=== PATIENT | female | born 1960 | race American Indian/Alaskan Native ===

== ENCOUNTER 2016-09-01 21:26 | Inpatient (IN) | payer MEDICAID ==
[2016-09-01 21:26] VITALS: BMI 48.9
[2016-09-01] MEDS ORDERED: Aspirin 325 mg EC Tablets PO STA (23:12)
[2016-09-01] MEDS ORDERED: Nitroglycerin 2% Ointment Foilpak UD TOP STA (23:12)
[2016-09-01] MEDS ORDERED: Nitroglycerin 2% Ointment Foilpak UD TOP ONE (23:29)
[2016-09-01 23:30] LABS: BASO % 0.7 % (0.0-2.0); HEMATOCRIT 43.1 % (34.0-47.0); LYMPH # 0.9 K/uL (1.0-4.3); MEAN CELL VOLUME 81.1 fL (81.0-99.0); MEAN CORPUSCULAR HEMOGLOBIN 25.3 pg (27.0-31.0); MEAN CORPUSCULAR HGB CONC 31.2 g/dL (33.0-37.0); MEAN PLATELET VOLUME 8.7 fL (7.2-11.7); MONO # 0.3 K/uL (0.0-0.8); MONO % 8.1 % (0.0-10.0); WHITE BLOOD COUNT 3.8 K/uL (4.8-10.8)
[2016-09-01 23:37] LABS: CHLORIDE 102 mmol/L (98-107)
[2016-09-01 23:38] LABS: POTASSIUM 4.2 mmol/L (3.6-5.2); SODIUM 138 mmol/L (132-148)
[2016-09-01 23:41] LABS: ALB/GLOB RATIO 0.9 (1.0-2.1); ALKALINE PHOSPHATASE 134 U/L (38-126); ALT/SGPT 20 U/L (9-52); AST/SGOT 20 U/L (14-36); BILIRUBIN,TOTAL 0.4 mg/dL (0.2-1.3); BLOOD UREA NITROGEN 13 mg/dL (7-17); CALCIUM 8.3 mg/dl (8.6-10.4); CARBON DIOXIDE 29 mmol/L (22-30); GFR AFRICAN-AMERICAN > 60; TOTAL PROTEIN 6.4 g/dL (6.3-8.3)
[2016-09-01 23:45] LABS: GLUCOSE,RANDOM 417 mg/dL (65-105)
[2016-09-02] MEDS ORDERED: (Novolin R) Insulin Human Regular 100 units/ml vial IV STA (00:22)
--- NOTE | 2016-09-02 00:28 | C.PDOC ---
Time Seen by Provider: 09/01/16 23:01 Chief Complaint (Nursing): Shortness Of Breath History Per: Patient, Family Onset/Duration Of Symptoms: Days, Gradual Current Symptoms Are (Timing): Worse Current Respiratory Medications: See Home Med List Severity: Moderate Associated Symptoms: Chest Pain, Ankle/Leg Swelling Reports Recently: Seen In ED, Treated By A Physician Additional History Per: Prior Records Past Medical History Reviewed: Historical Data, Nursing Documentation Vital Signs: Last Vital Signs Temp 97.7 F 09/01/16 22:40 Pulse 94 H 09/01/16 23:30 Resp 17 09/01/16 23:30 BP 177/101 H 09/01/16 23:30 Pulse Ox 99 09/01/16 23:30 - Medical History PMH: Arthritis, Asthma, Diabetes, HTN ("border line"), Hypercholesterolemia Surgical History: - [facility] Procedures CULDOTOMY (04/21/14) INSERTION OF INFUSION DEV INTO SUP VENA CAVA, PERC APPROACH (09/29/15) Family History: States: Unknown Family Hx - Social History Hx Tobacco Use: No Hx Alcohol Use: No Hx Substance Use: No - Immunization History Hx Tetanus Toxoid Vaccination: No Hx Influenza Vaccination: Yes Hx Pneumococcal Vaccination: No Review Of Systems Except As Marked, All Systems Reviewed And Found Negative. Constitutional: Negative for: Fever Cardiovascular: Positive for: Chest Pain, Edema Respiratory: Positive for: Shortness of Breath, SOB with Excertion. Negative for: Hemoptysis Gastrointestinal: Negative for: Vomiting, Abdominal Pain Musculoskeletal: Negative for: Neck Pain, Back Pain, Leg Pain Skin: Negative for: Rash Neurological: Negative for: Weakness, Numbness, Seizures, Altered Mental Status Physical Exam - Physical Exam Appears: Non-toxic, No Acute Distress Skin: Normal Color, Warm, Dry Head: Atraumatic, Normacephalic Eye(s): bilateral: PERRL, EOMI Neck: Normal ROM, Supple Cardiovascular: Rhythm Regular Respiratory: No Accessory Muscle Use, Rales (at bases) Gastrointestinal/Abdominal: Soft, No Tenderness Back: No CVA Tenderness Extremity: Normal ROM, Pedal Edema, No Calf Tenderness Neurological/Psych: Oriented x3, Normal Motor, Normal Sensation ED Course And Treatment - Laboratory Results Result Diagrams: 09/01/16 23:27 09/01/16 23:27 Lab Interpretation: Abnormal Interpretation Of Abnormal: Elevated BNP. Hyperglycemia. ECG: Interpreted By Me, Viewed By Me ECG Rhythm: Sinus Rhythm, PVC, Nonspecific Changes ECG Interpretation: Abnormal Rate From EC O2 Sat by Pulse Oximetry: 99 Pulse Ox Interpretation: Normal - Radiology CXR: Interpreted by Me, Viewed By Me CXR Interpretation: Yes: Other (CHF. Left pleural effusion.) Progress Note: Pt feels better after Nitropaste. Progress - Interventions Interventions:: Observation, Oxygen - Medications Administered Oral: Aspirin - Data Reviewed Data Reviewed: Lab, Diagnostic imaging, EKG, Old records - Patient Status Patient status: Partially improved - Continuity of Care Discussed patient case with:: Patient, Family-HIPPA compliant, ED Nurse, On- call PMD-pt unassigned - Patient Plan Patient Plan: Admission, Telemetry Disposition Discussed With : Carie Acosta Comment: She accepted pt on her service. Doctor Will See Patient In The: Hospital Counseled Patient/Family Regarding: Studies Performed, Diagnosis - Disposition Disposition: HOSPITALIZED Disposition Time: 00:30 Condition: FAIR - POA Present On Arrival: Poor Glycemic Control - Clinical Impression Clinical Impression: New onset of congestive heart failure
[2016-09-02] MEDS ORDERED: (Novolin R) Insulin Human Regular 100 units/ml vial ONE (00:37)
[2016-09-02 08:37] LABS: TROPONIN I 0.014 ng/mL (0.00-0.120)
[2016-09-02] MEDS: Albuterol HFA 90 mcg/actuation (8 g) IH SCH ×3 (09:33→19:20)
--- NOTE | 2016-09-02 09:42 | RAD ---
HISTORY: SOB, CP COMPARISON: 09/28/2015 TECHNIQUE: Chest PA and lateral FINDINGS: LUNGS: Mild venous congestion. Focal consolidation at the left lung base with associated small left pleural effusion. PLEURA: As above. CARDIOVASCULAR: Mild cardiomegaly. Calcification at the aortic knob. OSSEOUS STRUCTURES: No significant abnormalities. VISUALIZED UPPER ABDOMEN: Normal. OTHER FINDINGS: None. IMPRESSION: Mild venous congestion. Focal consolidation at the left lung base with associated small left pleural effusion.
[2016-09-02 09:49] LABS: RBC URINE 19 /hpf (0-3); URINE BILIRUBIN NEGATIVE (NEGATIVE); URINE BLOOD 1+ (NEGATIVE); URINE COLOR Yellow (YELLOW); URINE GLUCOSE (UA) 3+ mg/dL (Normal); URINE KETONE NEGATIVE (NEGATIVE); URINE LEUKOCYTE ESTERASE NEG Leu/uL (Negative); URINE PROTEIN 3+ mg/dL (NEGATIVE); URINE UROBILINOGEN NORMAL mg/dL (0.2-1.0); WBC URINE 4 /hpf (0-5)
[2016-09-02 09:55] LABS: IRON 77 ug/dL (37-170)
[2016-09-02] MEDS ORDERED: (Novolin 70/30) NPH/Regular 70/30 Units/ml 10 ml vial SC SCH (10:00)
[2016-09-02 11:03] LABS: FOLATE 11.4 ng/mL
[2016-09-02] MEDS: Potassium Chloride 20 mEq ER Tab PO SCH (11:04)
[2016-09-02] MEDS: (Novolin 70/30) NPH/Regular 70/30 Units/ml 10 ml vial SC SCH (17:28)
[2016-09-02] MEDS: (Novolin R) Insulin Human Regular 100 units/ml vial SC SCH ×2 (17:29→22:19)
[2016-09-03] MEDS: Albuterol HFA 90 mcg/actuation (8 g) IH SCH ×2 (02:00→10:09)
[2016-09-03 06:24] LABS: HEMATOCRIT 43.9 % (34.0-47.0); MEAN CELL VOLUME 81.2 fL (81.0-99.0); MEAN CORPUSCULAR HEMOGLOBIN 25.5 pg (27.0-31.0); MEAN CORPUSCULAR HGB CONC 31.4 g/dL (33.0-37.0); RED CELL DISTRIBUTION WIDTH 13.9 % (11.5-14.5); WHITE BLOOD COUNT 4.6 K/uL (4.8-10.8)
[2016-09-03 06:45] LABS: CHLORIDE 102 mmol/L (98-107); POTASSIUM 3.7 mmol/L (3.6-5.2); SODIUM 140 mmol/L (132-148)
[2016-09-03 06:48] LABS: BLOOD UREA NITROGEN 16 mg/dL (7-17); CARBON DIOXIDE 30 mmol/L (22-30); GFR AFRICAN-AMERICAN > 60; GLUCOSE,RANDOM 215 mg/dL (65-105)
[2016-09-03 06:49] LABS: CALCIUM 8.4 mg/dl (8.6-10.4)
[2016-09-03 07:09] LABS: THYROID STIMULATING HORMONE 3.91 mIU/L (0.46-4.68)
[2016-09-03] MEDS: (Novolin R) Insulin Human Regular 100 units/ml vial SC SCH ×3 (08:19→17:44)
--- NOTE | 2016-09-03 09:46 | HP ---
CHIEF COMPLAINT: Shortness of breath. HISTORY OF PRESENT ILLNESS: The patient is a 56-year-old female with past medical history of arthrit is, asthma, diabetes, hypertension, hypercholesterolemia, came in [facility] with shortness of b reath. That shortness of breath was moderate, associated chest pain, ankle and leg swelling. Seen b y in the Emergency Room. No hematuria or hematochezia. No headache, no dizziness. No fever, no chills. Does not look like toxic. ALLERGIES: The patient is not allergic with any medications. HOME MEDICATIONS: Insulin, glipizide, albuterol. HABITS: No smoking, no drugs, no ethanol. FAMILY HISTORY: Father and mother noncontributory. REVIEW OF SYSTEMS: The patient is seen and examined by me on 09/02/2016. No fever, no chills. No c hest pain. Positive shortness of breath, especially with exertion. Negative for hemoptysis. Negati ve for vomiting, abdominal pain. No back pain. No rash. No weakness. PHYSICAL EXAMINATION: VITAL SIGNS: Blood pressure 177/101, respiration 17, pulse 94, temperature 97.7. HEENT: Head is normocephalic, atraumatic. Eyes: PERRLA. Extraocular muscles intact. Conjunctivae are clear. Nose patent. Mucous membranes moist. NECK: Supple. No carotid bruit, JVD or thyromegaly. CHEST: Bilaterally symmetrical. HEART: S1, S2 positive. LUNGS: Clear to auscultation. ABDOMEN: Soft. Bowel sounds positive. No organomegaly. EXTREMITIES: Trace edema, no cyanosis. NEUROLOGIC: The patient is awake, alert, oriented x 3. No focal deficit. LABORATORY DATA: White blood 3.8, hemoglobin 13.5, hematocrit 43.1, platelets 213. Sodium 138, pota ssium 4.2, BUN 13, creatinine 0.7, glucose 417. ASSESSMENT AND PLAN: The patient is a 56-year-old lady with uncontrolled diabetes mellitus, leukopen ia, came with shortness of breath, has history of arthritis, asthma, diabetes mellitus, hypertension, hypercholesterolemia, history of sections, poor glycemic control. Looks like she has a new onset congestive heart failure. The patient admitted, started hydralazine, aspirin, losartan, Gluco trol, potassium, IV Lasix started, famotidine given for GI prophylaxis. Cardiology consult called [facility] Dr. Chavez on 09/02/2016 early in the morning, 9:00. We will continue present treatment. Gastroin testinal and deep venous thrombosis prophylaxis. Repeat labs. Will follow up. Carie Acosta MD cc: [id number] TT: 09/03/2016 09:46:00 mn
[2016-09-03] MEDS ORDERED: Albuterol HFA 90 mcg/actuation (8 g) IH PRN (10:20)
[2016-09-03] MEDS: Potassium Chloride 20 mEq ER Tab PO SCH (10:27)
[2016-09-03] MEDS: (Novolin 70/30) NPH/Regular 70/30 Units/ml 10 ml vial SC SCH ×2 (10:28→17:45)
--- NOTE | 2016-09-03 13:16 | CP.PCM.CON ---
History of Present Illness - History of Present Illness History of Present Illness: Shortness of breath with swelling of the legs for the last few weeks. Past Patient History - Past Medical History & Family History Past Medical History?: Yes - Past Social History Smoking Status: Never Smoked - CARDIAC Hx Hypercholesterolemia: Yes Hx Hypertension: Yes ("border line") - PULMONARY Hx Asthma: Yes - NEUROLOGICAL Hx Neurological Disorder: No - HEENT Hx HEENT Problems: No - RENAL Hx Chronic Kidney Disease: No - ENDOCRINE/METABOLIC Hx Diabetes Mellitus Type 2: Yes - HEMATOLOGICAL/ONCOLOGICAL Hx Blood Transfusions: No - INTEGUMENTARY Other/Comment: abscess right axilla 2010 - MUSCULOSKELETAL/RHEUMATOLOGICAL Hx Falls: No - GASTROINTESTINAL Hx Gastrointestinal Disorders: No - GENITOURINARY/GYNECOLOGICAL Hx Genitourinary Disorders: No - PSYCHIATRIC Hx Substance Use: No - SURGICAL HISTORY Hx Surgeries: Yes Hx Section: Yes (1981, 1983, 1984) Other/Comment: abcess via axillary area(right)2010 - ANESTHESIA Hx Anesthesia: Yes Hx Malignant Hyperthermia: No Meds Allergies/Adverse Reactions: Allergies Allergy/AdvReac Type Severity Reaction Status Date / Time No Known Allergies Allergy Verified 05/10/15 16:43 - Medications Medications: Current Medications Albuterol (Ventolin Hfa 90 Mcg/Actuation (8 G)) 2 puff IH Q6H PRN PRN Reason: Shortness of Breath Albuterol/Ipratropium (Duoneb 3 Mg/0.5 Mg (3 Ml) Ud) 3 ml INH RQ6 [facility] Aspirin (Aspirin) 325 mg PO DAILY [facility] Last Admin: 09/03/16 10:27 Dose: 325 mg Famotidine (Pepcid) 40 mg PO DAILY [facility] Last Admin: 09/03/16 10:27 Dose: 40 mg Furosemide (Lasix) 40 mg IVP Q12 [facility] Last Admin: 09/03/16 10:28 Dose: 40 mg Glipizide (Glucotrol) 10 mg PO BID [facility] Last Admin: 09/03/16 10:27 Dose: 10 mg Insulin Human Isoph/Insulin Regular (Novolin 70/30 (70/30 Units/Ml) 10 Ml) 10 units SC BID [facility] Last Admin: 09/03/16 10:28 Dose: 10 units Insulin Human Regular (Novolin R) 0 unit SC ACHS [facility] PRN Reason: Protocol Last Admin: 09/03/16 08:19 Dose: 2 unit Losartan Potassium (Cozaar) 100 mg PO DAILY [facility] Last Admin: 09/03/16 10:27 Dose: 100 mg Potassium Chloride (K-Dur 20 Meq Er Tab) 20 meq PO DAILY [facility] Last Admin: 09/03/16 10:27 Dose: 20 meq Rosuvastatin Calcium (Crestor) 20 mg PO [facility] Physical Exam - Head Exam Head Exam: NORMOCEPHALIC - Neck Exam Neck exam: Positive for: Normal Inspection - Cardiovascular Exam Cardiovascular Exam: REGULAR RHYTHM - Extremities Exam Extremities exam: Positive for: pedal edema - Neurological Exam Neurological exam: Oriented x3 Results - Vital Signs Recent Vital Signs: Last Vital Signs Temp 98.0 F 09/03/16 04:00 Pulse 96 H 09/03/16 10:40 Resp 20 09/03/16 10:40 BP 151/84 H 09/03/16 10:40 Pulse Ox 97 09/03/16 10:40 - Labs Result Diagrams: 09/04/16 06:15 09/04/16 06:16 Labs: Laboratory Results - last 24 hr 09/02/16 09/02/16 09/03/16 16:06 21:17 06:18 WBC 4.6 L RBC 5.40 H Hgb 13.8 Hct 43.9 MCV 81.2 MCH 25.5 L MCHC 31.4 L RDW 13.9 Plt Count 219 MPV 9.0 Sodium Potassium Chloride Carbon Dioxide Anion Gap BUN Creatinine Est GFR ( Amer) Est GFR (Non-Af Amer) POC Glucose (mg/dL) 378 H 202 H Random Glucose Calcium Total Creatine Kinase CK-MB (Mass) Troponin I, Quant TSH 3rd Generation 09/03/16 09/03/16 09/03/16 06:18 06:18 07:40 WBC RBC Hgb Hct MCV MCH MCHC RDW Plt Count MPV Sodium 140 Potassium 3.7 Chloride 102 Carbon Dioxide 30 Anion Gap 12 BUN 16 Creatinine 0.8 Est GFR ( Amer) > 60 Est GFR (Non-Af Amer) > 60 POC Glucose (mg/dL) 222 H Random Glucose 215 H Calcium 8.4 L Total Creatine Kinase 202 H CK-MB (Mass) 2.68 Troponin I, Quant < 0.0120 TSH 3rd Generation 3.91 09/03/16 12:29 WBC RBC Hgb Hct MCV MCH MCHC RDW Plt Count MPV Sodium Potassium Chloride Carbon Dioxide Anion Gap BUN Creatinine Est GFR ( Amer) Est GFR (Non-Af Amer) POC Glucose (mg/dL) 209 H Random Glucose Calcium Total Creatine Kinase CK-MB (Mass) Troponin I, Quant TSH 3rd Generation Assessment & Plan (1) New onset of congestive heart failure Assessment and Plan: History of multiple medical issues which can lead to CHF. However at this point it may be systolic , diastolic or combination of both. Recommend continue diuretic and maintain electrolyte balance with fluid restriction. Echocardiogram to assess LV function, depending upon LV finction will make further recommendation in the regimen. Status: Acute (2) Chest pain Assessment and Plan: May be ischmia or combination of CHF with ischemia. Continue monitoring and will consider further cardiac work-up when CHF is stable. Status: Acute Priority: High Onset Date: 01/06/14
[2016-09-03] MEDS: Albuterol-Ipratrop 3 mg / 0.5 (3 ml) UD INH SCH ×2 (13:29→19:35)
[2016-09-04] MEDS: (Novolin R) Insulin Human Regular 100 units/ml vial SC SCH ×6 (00:48→21:22)
[2016-09-04] MEDS: Albuterol-Ipratrop 3 mg / 0.5 (3 ml) UD INH SCH ×4 (01:50→20:16)
[2016-09-04 06:41] LABS: CHLORIDE 103 mmol/L (98-107); POTASSIUM 3.5 mmol/L (3.6-5.2); SODIUM 140 mmol/L (132-148)
[2016-09-04 06:44] LABS: BLOOD UREA NITROGEN 19 mg/dL (7-17); CARBON DIOXIDE 29 mmol/L (22-30); GFR AFRICAN-AMERICAN > 60; GLUCOSE,RANDOM 257 mg/dL (65-105)
[2016-09-04 06:45] LABS: CALCIUM 8.2 mg/dl (8.6-10.4)
[2016-09-04 06:53] LABS: BASO % 0.7 % (0.0-2.0); EOS % 0.7 % (0.0-4.0); HEMATOCRIT 39.9 % (34.0-47.0); LYMPH # 0.8 K/uL (1.0-4.3); LYMPH % 19.7 % (20.0-40.0); MEAN CELL VOLUME 80.2 fL (81.0-99.0); MEAN CORPUSCULAR HEMOGLOBIN 25.8 pg (27.0-31.0); MEAN CORPUSCULAR HGB CONC 32.1 g/dL (33.0-37.0); MEAN PLATELET VOLUME 8.7 fL (7.2-11.7); MONO # 0.4 K/uL (0.0-0.8); MONO % 8.5 % (0.0-10.0); NRBC % 0.1 % (0.0-2.0); RED CELL DISTRIBUTION WIDTH 13.7 % (11.5-14.5); WHITE BLOOD COUNT 4.3 K/uL (4.8-10.8)
[2016-09-04 07:10] LABS: THYROID STIMULATING HORMONE 2.49 mIU/L (0.46-4.68)
--- NOTE | 2016-09-04 08:16 | CARD ---
APPROVED REPORT EXAM: Two-dimensional and M-mode echocardiogram with Doppler and color Doppler. Other Information Quality : GoodRhythm : INDICATION LV Function:Systolic Congestive Heart Failure M-Mode DIMENSIONS RVDd1.48 (2.1-3.2cm)Left Atrium (MM)4.37 (2.5-4.0cm) IVSd1.33 (0.7-1.1cm)Aortic Root2.81 (2.2-3.7cm) LVDd5.23 (4.0-5.6cm)Aortic Cusp Exc.1.64 (1.5-2.0cm) PWd1.17 (0.7-1.1cm)FS (%) 28 % LVDs3.79 (2.0-3.8cm)LVEF (%)53 (>50%) Mitral Valve MV E Zoofztxo80.2cm/sMV A Eabxyfji664.7cm/sE/A ratio0.8 TDI E/Lateral E'0.0E/Medial E'0.0 <Conclusion> Apical views poorly visulized Left ventricle: thickness: upper limit of normal; size: normal; overall ejection fraction: 65%: diastolic filling pressures: normal Mitral valve: annulus: discrete posterior calcification: leaflets: normal: excursion: normal; no significant trans-mitral gradient: mild incompetence: left atrium: normal Aortic valve: leaflets: normal: excursion: normal; no significant trans-aortic gradient: No significant incompetence: aortic root: normal Right sided Structures: grossly normal Intra-cardiac hemodynamics: indeterminate No pericardial effusion
[2016-09-04] MEDS: (Novolin 70/30) NPH/Regular 70/30 Units/ml 10 ml vial SC SCH ×2 (10:28→17:42)
[2016-09-04] MEDS: Potassium Chloride 20 mEq ER Tab PO SCH ×2 (10:29→17:42)
--- NOTE | 2016-09-04 10:48 | PN ---
DATE: 09/03/2016 SUBJECTIVE: The patient was seen and examined on 09/03/2016 in the unit on the bedside. Still having swelling of the legs. No nausea or vomiting. Shortness of breath is getting better but still has dyspnea. No fever, no chills. No headache, no dizziness. No hematuria or hematochezia. No constipation. No rash. No cellulitis of the legs. PHYSICAL EXAMINATION: VITAL SIGNS: Temperature is 98.6, pulse 104, blood pressure 154/77, respiratory rate 19. HEENT: Head is normocephalic, atraumatic. Eyes: PERRLA. Extraocular muscles are intact. Conjunctivae are clear. Nose patent. Mucous membranes moist. NECK: Supple. No carotid bruit, JVD or thyromegaly. CHEST: Bilaterally symmetrical. HEART: S1, S2 positive. LUNGS: Clear to auscultation. ABDOMEN: Soft. Bowel sounds positive. No organomegaly. EXTREMITIES: Positive edema, no cyanosis. NEUROLOGIC: The patient is awake, alert, follows simple commands. MEDICATIONS: Aspirin, Cozaar, Crestor, DuoNeb, Glucotrol, K-Dur, Lasix, Norvasc , insulin, Pepcid, albuterol. LABORATORY DATA: White blood cells 4.6, hemoglobin 13.8, hematocrit 43.9, and platelets 219. Glucose 222. Sodium 140, potassium 3.7, BUN noted , creatinine 0.8, glucose 215, calcium 8.4. ASSESSMENT AND PLAN: The patient is a 56-year-old lady with uncontrolled diabetes mellitus, hypocalcemia, leukopenia, proteinuria, glucosuria, hematuria , came with chest pain, seen by the tobacco stemmer machine (Dr. Renetta Chavez), new onset congestive heart failure, history of multiple medical issues which can lead to congestive heart failure. According to tobacco stemmer machine, may be systolic, diastolic or combination of both. Recommended to continue diuretic and maintain electrolyte balance with fluid prescriptions. Electrocardiogram to assess left ventricle function. Depending on left ventricular function, will make further recommendation. Chest pain can be congestive heart failure with ischemia. Continue monitoring. GI and DVT prophylaxis. Repeat labs. Will follow up. Carie Acosta MD cc: [id number] TT: 09/04/2016 10:47:57 Confirmation # [id number] Dictation # [id number] mn TAMERA
--- NOTE | 2016-09-04 11:39 | CP.PCM.CON ---
History of Present Illness - History of Present Illness History of Present Illness: 56 y/o female seen and evaluated with Left foot blisterous healed lesion. Patient was admitted for a CHF exacerbation and was evaluated in the ICU. Patient states that she was seen at a criminal intelligence analyst office as an outpatient last week and was told that on the back of her left heel she had an "abscess". Patient states that she wasnt sure what they did to diagnose the abscess but states that her left foot and ankle was wrapped up with a soft cast and the back of her heel was offloaded. patient states that since she hadnt been feeling any pain in the ankle or foot. Patient also states that she had been seeing another criminal intelligence analyst for the right foot of which she states she had fractured years ago and was placed into a cast. Patient denies any further pedal complaints. Denies any f/c/n/v/sob. Past Patient History - Past Medical History & Family History Past Medical History?: Yes - Past Social History Smoking Status: Never Smoked - CARDIAC Hx Hypercholesterolemia: Yes Hx Hypertension: Yes ("border line") - PULMONARY Hx Asthma: Yes - NEUROLOGICAL Hx Neurological Disorder: No - HEENT Hx HEENT Problems: No - RENAL Hx Chronic Kidney Disease: No - ENDOCRINE/METABOLIC Hx Diabetes Mellitus Type 2: Yes - HEMATOLOGICAL/ONCOLOGICAL Hx Blood Transfusions: No - INTEGUMENTARY Other/Comment: abscess right axilla 2010 - MUSCULOSKELETAL/RHEUMATOLOGICAL Hx Falls: No - GASTROINTESTINAL Hx Gastrointestinal Disorders: No - GENITOURINARY/GYNECOLOGICAL Hx Genitourinary Disorders: No - PSYCHIATRIC Hx Substance Use: No - SURGICAL HISTORY Hx Surgeries: Yes Hx Section: Yes (1981, 1983, 1984) Other/Comment: abcess via axillary area(right)2010 - ANESTHESIA Hx Anesthesia: Yes Hx Malignant Hyperthermia: No Meds Allergies/Adverse Reactions: Allergies Allergy/AdvReac Type Severity Reaction Status Date / Time No Known Allergies Allergy Verified 05/10/15 16:43 - Medications Medications: Current Medications Albuterol (Ventolin Hfa 90 Mcg/Actuation (8 G)) 2 puff IH Q6H PRN PRN Reason: Shortness of Breath Last Admin: 09/04/16 01:31 Dose: 2 puff Albuterol/Ipratropium (Duoneb 3 Mg/0.5 Mg (3 Ml) Ud) 3 ml INH RQ6 [facility] Last Admin: 09/04/16 07:48 Dose: 3 ml Amlodipine Besylate (Norvasc) 10 mg PO DAILY [facility] Last Admin: 09/04/16 10:29 Dose: 10 mg Aspirin (Aspirin) 325 mg PO DAILY [facility] Last Admin: 09/04/16 10:29 Dose: 325 mg Famotidine (Pepcid) 40 mg PO DAILY [facility] Last Admin: 09/04/16 10:29 Dose: 40 mg Furosemide (Lasix) 40 mg IVP Q12 [facility] Last Admin: 09/04/16 10:29 Dose: 40 mg Glipizide (Glucotrol) 10 mg PO BID [facility] Last Admin: 09/04/16 10:28 Dose: 10 mg Insulin Human Isoph/Insulin Regular (Novolin 70/30 (70/30 Units/Ml) 10 Ml) 10 units SC BID [facility] Last Admin: 09/04/16 10:28 Dose: 10 units Insulin Human Regular (Novolin R) 0 unit SC ACHS [facility] PRN Reason: Protocol Last Admin: 09/04/16 10:31 Dose: 3 unit Losartan Potassium (Cozaar) 100 mg PO DAILY [facility] Last Admin: 09/04/16 10:28 Dose: 100 mg Potassium Chloride (K-Dur 20 Meq Er Tab) 20 meq PO DAILY [facility] Last Admin: 09/04/16 10:29 Dose: 20 meq Rosuvastatin Calcium (Crestor) 20 mg PO HS [facility] Last Admin: 09/03/16 23:19 Dose: 20 mg Physical Exam - Constitutional Appears: Well, Non-toxic - Neurological Exam Neurological exam: Alert, Oriented x3 - Psychiatric Exam Psychiatric exam: Normal Affect, Normal Mood - Skin Skin Exam: Normal Color, Warm - Additional Findings Additional findings: Vasc: DP/PT 1/4, Temp gradient wnl, Cap fill time < 3 x 10 Derm: Mild diffuse edema noted surrounding the left nakle but non pitting, no erythema, no open lesions, no interdigital maceration, no clinical signs of infection noted, on the posterior aspect of left heel there is a heeled blisterous lesion noted, there is no fluctuance noted underlying the healed lesion, no opening of the blister to underlying tissue is noted Neuro: Grossly itnact Ortho: Limited Results - Vital Signs Recent Vital Signs: Last Vital Signs Temp 98.0 F 09/04/16 04:00 Pulse 99 H 09/04/16 06:44 Resp 19 09/04/16 06:44 BP 108/59 L 09/04/16 10:29 Pulse Ox 97 09/04/16 01:44 - Labs Result Diagrams: 09/04/16 06:15 09/04/16 06:16 Labs: Laboratory Results - last 24 hr 09/03/16 09/03/16 09/03/16 12:29 16:32 20:59 WBC RBC Hgb Hct MCV MCH MCHC RDW Plt Count MPV Neut % (Auto) Lymph % (Auto) Ponce % (Auto) Eos % (Auto) Baso % (Auto) Neut # Lymph # Ponce # Eos # Baso # Sodium Potassium Chloride Carbon Dioxide Anion Gap BUN Creatinine Est GFR ( Amer) Est GFR (Non-Af Amer) POC Glucose (mg/dL) 209 H 276 H 382 H Random Glucose Calcium Total Creatine Kinase CK-MB (Mass) Troponin I, Quant TSH 3rd Generation 09/04/16 09/04/16 09/04/16 06:15 06:16 08:07 WBC 4.3 L RBC 4.98 Hgb 12.8 Hct 39.9 MCV 80.2 L MCH 25.8 L MCHC 32.1 L RDW 13.7 Plt Count 197 MPV 8.7 Neut % (Auto) 70.4 Lymph % (Auto) 19.7 L Ponce % (Auto) 8.5 Eos % (Auto) 0.7 Baso % (Auto) 0.7 Neut # 3.0 Lymph # 0.8 L Ponce # 0.4 Eos # 0.0 Baso # 0.0 Sodium 140 Potassium 3.5 L Chloride 103 Carbon Dioxide 29 Anion Gap 12 BUN 19 H Creatinine 0.8 Est GFR ( Amer) > 60 Est GFR (Non-Af Amer) > 60 POC Glucose (mg/dL) 243 H Random Glucose 257 H Calcium 8.2 L Total Creatine Kinase 201 H CK-MB (Mass) 2.35 Troponin I, Quant 0.0280 TSH 3rd Generation 2.49 Assessment & Plan - Assessment and Plan (Free Text) Assessment: 56 y/o female seen and evaluated with left posterior ankle healed blisterous lesion. Plan: Patient evaluated and chart reivewed Seen with attending Dr. Rodriguez. Dressing removed; healed blister noted Area redressed with overlying xeroform and DSD to prevent reformation. X-rays ordered b/l to eval to completely r/o any underlying abscess and to eval riht foot old fracture site. wound is stable at this time; Will continue to follow.
--- NOTE | 2016-09-04 15:06 | CP.PCM.PN ---
Subjective - Date & Time of Evaluation Date of Evaluation: 09/04/16 Time of Evaluation: 15:05 - Subjective Subjective: Feeling slightly better but still short of breath. Still have swelling of the legs. Objective - Vital Signs/Intake and Output Vital Signs (last 24 hours): Temp Pulse Resp BP Pulse Ox 98.0 F 99 H 19 108/59 L 97 09/04/16 04:00 09/04/16 06:44 09/04/16 06:44 09/04/16 10:29 09/04/16 01:44 Intake and Output: 09/04/16 09/04/16 06:59 18:59 Intake Total 360 Output Total 900 Balance -540 - Medications Medications: Current Medications Albuterol (Ventolin Hfa 90 Mcg/Actuation (8 G)) 2 puff IH Q6H PRN PRN Reason: Shortness of Breath Last Admin: 09/04/16 01:31 Dose: 2 puff Albuterol/Ipratropium (Duoneb 3 Mg/0.5 Mg (3 Ml) Ud) 3 ml INH RQ6 [facility] Last Admin: 09/04/16 14:16 Dose: Not Given Amlodipine Besylate (Norvasc) 10 mg PO DAILY [facility] Last Admin: 09/04/16 10:29 Dose: 10 mg Aspirin (Aspirin) 325 mg PO DAILY [facility] Last Admin: 09/04/16 10:29 Dose: 325 mg Famotidine (Pepcid) 40 mg PO DAILY [facility] Last Admin: 09/04/16 10:29 Dose: 40 mg Furosemide (Lasix) 40 mg IVP Q12 [facility] Last Admin: 09/04/16 10:29 Dose: 40 mg Glipizide (Glucotrol) 10 mg PO BID [facility] Last Admin: 09/04/16 10:28 Dose: 10 mg Insulin Human Isoph/Insulin Regular (Novolin 70/30 (70/30 Units/Ml) 10 Ml) 10 units SC BID [facility] Last Admin: 09/04/16 10:28 Dose: 10 units Insulin Human Regular (Novolin R) 0 unit SC ACHS [facility] PRN Reason: Protocol Last Admin: 09/04/16 10:31 Dose: 3 unit Losartan Potassium (Cozaar) 100 mg PO DAILY [facility] Last Admin: 09/04/16 10:28 Dose: 100 mg Potassium Chloride (K-Dur 20 Meq Er Tab) 20 meq PO DAILY [facility] Last Admin: 09/04/16 10:29 Dose: 20 meq Rosuvastatin Calcium (Crestor) 20 mg PO HS [facility] Last Admin: 09/03/16 23:19 Dose: 20 mg - Labs Labs: 09/04/16 06:15 09/04/16 06:16 - Head Exam Head Exam: NORMOCEPHALIC - Neck Exam Neck Exam: Normal Inspection - Respiratory Exam Respiratory Exam: NORMAL BREATHING PATTERN - Cardiovascular Exam Cardiovascular Exam: REGULAR RHYTHM - Extremities Exam Extremities Exam: Pedal Edema - Neurological Exam Neurological Exam: Oriented x3 Assessment and Plan (1) New onset of congestive heart failure Assessment & Plan: CHF, slightly better but still still significant fluid overload. Continue diuresis, maintain electrolyte balance. D/C Norvasc, Add meotprolol 50 BID and increase lasix to 80 BID with potassium supplement. Status: Acute (2) Chest pain Assessment & Plan: No new episodes, Sinus tachycardia most likely secondary to CHF. will increase beta blockers as tolerated. Status: Acute
[2016-09-04] MEDS: Magnesium Oxide 400 mg Tab UD PO SCH (17:42)
[2016-09-04] MEDS ORDERED: Magnesium Sulfate 454 g Box PO SCH (18:00)
--- NOTE | 2016-09-04 18:32 | CARD ---
APPROVED REPORT EKG Measurement Heart [id number] <Conclusion> Sinus tachycardia with frequent premature ventricular complexes Septal infarct, age undetermined Abnormal ECG
[2016-09-05] MEDS: Albuterol-Ipratrop 3 mg / 0.5 (3 ml) UD INH SCH ×4 (01:28→19:38)
--- NOTE | 2016-09-05 07:57 | PN ---
DATE: 09/04/2016 SUBJECTIVE: The patient was seen and examined on the unit. Was having lunch. Feeling slightly better. Still has shortness of breath. Swelling of the leg is getting better, but still swollen. Left foot has a dressing. Seen by the pediatric physician assistant. Seen by the tree scout. PHYSICAL EXAMINATION: VITAL SIGNS: Temperature 98, pulse 99, respiratory 19, blood pressure 108/59, pulse oximetry 97. HEENT: Head normocephalic, atraumatic. Eyes PERRLA. Extraocular muscles intact. Conjunctivae clear. Nose patent. NECK: Supple. No carotid bruit, JVD or thyromegaly. CHEST: Bilaterally symmetrical. HEART: S1, S2 positive. LUNGS: Clear to auscultation. ABDOMEN: Soft. Bowel sounds present. No organomegaly. EXTREMITIES: Positive edema. No cyanosis. Left foot heel has a dressing. NEUROLOGIC: The patient awake, alert, moving all 4 extremities. No focal deficits. MEDICATIONS: DuoNeb, Norvasc, aspirin, Pepcid, Lasix, Glucotrol, insulin, Cozaar, K-Dur, Crestor. LABORATORY DATA: White blood cells 4.3, hemoglobin 12.8, hematocrit 39.9, platelets 197. Sodium 140, potassium 3.5, BUN 19, creatinine 0.8, glucose 257. ASSESSMENT AND PLAN: The patient is a 56-year-old lady with leukopenia, hypokalemia, hyperglycemia. Has new onset congestive heart failure as per cardiology. Slightly better, but still significant fluid overload. Continue diuretics , electrolyte balance. Discontinue Norvasc as per tree scout. Add metoprolol 50 b.i.d. Increase Lasix to 80 b.i.d. with potassium supplement. No new onset of the chest pain. History of sinus tachycardia, most likely secondary to congestive heart failure. beta brody as tolerated. Seen by the podiatry, Dr. Jose Manuel Fang. The patient was seen by the pediatric physician assistant's office last week as outpatient and was told that the back of her foot heel, she has abscess. The patient states that she wants that they did to diagnose the abscess, but states that her left foot and ankle was wrapped up with a soft cast and the back of her heel was offloaded. The patient states that since she has not been feeling any pain in the ankle or foot. The patient also stated that she had been seeing another pediatric physician assistant for the right foot of which she states she had fractured years ago and was placed into the cast. The patient denies any further complaints. Dressing was removed. Heel blisters noted. Area redressed with overlying Xeroform and to prevent infection. X-ray ordered bilaterally to evaluate it completely. Rule out any underlying abscess and to evaluate right foot for old fracture. Wound is stable at this point. We will continue to follow present treatment. We will follow up. Carie Acosta MD cc: [id number] TT: 09/05/2016 00:46:51 Confirmation # [id number] Dictation # [id number] MTDD
[2016-09-05] MEDS: (Novolin R) Insulin Human Regular 100 units/ml vial SC SCH ×4 (08:09→21:37)
[2016-09-05] MEDS: (Novolin 70/30) NPH/Regular 70/30 Units/ml 10 ml vial SC SCH ×2 (09:46→17:41)
[2016-09-05] MEDS: Potassium Chloride 20 mEq ER Tab PO SCH ×2 (09:48→17:41)
[2016-09-05] MEDS: Magnesium Oxide 400 mg Tab UD PO SCH ×2 (09:49→17:41)
[2016-09-05] MEDS: Enoxaparin 40 mg Syringe SC SCH (09:49)
[2016-09-05] MEDS: Bacitracin Ointment 30 GM TUBE TOP SCH (12:39)
--- NOTE | 2016-09-05 18:09 | CP.PCM.PN ---
Subjective - Date & Time of Evaluation Date of Evaluation: 09/05/16 Time of Evaluation: 18:05 - Subjective Subjective: Sitting on the side of the bed having dinner. shortness of breath have improved. But swelling of the legs is still there. Objective - Vital Signs/Intake and Output Vital Signs (last 24 hours): Temp Pulse Resp BP Pulse Ox 98.6 F 82 20 127/78 97 09/05/16 16:00 09/05/16 16:00 09/05/16 16:00 09/05/16 16:00 09/05/16 08:27 Intake and Output: 09/05/16 09/05/16 06:59 18:59 Intake Total 240 Output Total 1500 1200 Balance -1260 -1200 - Medications Medications: Current Medications Acetaminophen (Tylenol 325mg Tab) 650 mg PO Q8 PRN PRN Reason: Pain, moderate (4-7) Last Admin: 09/05/16 12:39 Dose: 650 mg Albuterol (Ventolin Hfa 90 Mcg/Actuation (8 G)) 2 puff IH Q6H PRN PRN Reason: Shortness of Breath Last Admin: 09/04/16 01:31 Dose: 2 puff Albuterol/Ipratropium (Duoneb 3 Mg/0.5 Mg (3 Ml) Ud) 3 ml INH RQ6 [facility] Last Admin: 09/05/16 14:20 Dose: Not Given Aspirin (Aspirin) 325 mg PO DAILY [facility] Last Admin: 09/05/16 09:49 Dose: 325 mg Bacitracin (Bacitracin) 0 gm TOP DAILY [facility] Last Admin: 09/05/16 12:39 Dose: 1 gm Enoxaparin Sodium (Lovenox) 40 mg SC DAILY [facility] Last Admin: 09/05/16 09:49 Dose: 40 mg Famotidine (Pepcid) 40 mg PO DAILY [facility] Last Admin: 09/05/16 09:48 Dose: 40 mg Furosemide (Lasix) 80 mg IVP Q12 [facility] Last Admin: 09/05/16 09:48 Dose: 80 mg Glipizide (Glucotrol) 10 mg PO BID [facility] Last Admin: 09/05/16 17:40 Dose: 10 mg Insulin Human Isoph/Insulin Regular (Novolin 70/30 (70/30 Units/Ml) 10 Ml) 10 units SC BID [facility] Last Admin: 09/05/16 17:41 Dose: 10 units Insulin Human Regular (Novolin R) 0 unit SC ACHS [facility] PRN Reason: Protocol Last Admin: 09/05/16 17:41 Dose: 1 unit Losartan Potassium (Cozaar) 100 mg PO DAILY [facility] Last Admin: 09/05/16 09:48 Dose: 100 mg Magnesium Oxide (Mag-Ox) 400 mg PO BID [facility] Last Admin: 09/05/16 17:41 Dose: 400 mg Metoprolol Tartrate (Lopressor) 50 mg PO BID [facility] Last Admin: 09/05/16 17:40 Dose: 50 mg Potassium Chloride (K-Dur 20 Meq Er Tab) 40 meq PO BID [facility] Last Admin: 09/05/16 17:41 Dose: 40 meq Rosuvastatin Calcium (Crestor) 20 mg PO HS [facility] Last Admin: 09/04/16 23:18 Dose: 20 mg - Labs Labs: 09/04/16 06:15 09/04/16 06:16 - Head Exam Head Exam: NORMOCEPHALIC - Neck Exam Neck Exam: Normal Inspection - Respiratory Exam Respiratory Exam: NORMAL BREATHING PATTERN - Cardiovascular Exam Cardiovascular Exam: REGULAR RHYTHM - Extremities Exam Extremities Exam: Pedal Edema - Neurological Exam Neurological Exam: Oriented x3 Assessment and Plan (1) New onset of congestive heart failure Assessment & Plan: Diastolic dysfunction which is improving, continue diuretsics and maintain electrolytes balance. Status: Acute (2) Chest pain Assessment & Plan: Resolved, further cardiac work-up when CHF is resolved. Status: Acute
[2016-09-06] MEDS: Albuterol-Ipratrop 3 mg / 0.5 (3 ml) UD INH SCH ×4 (01:28→19:42)
--- NOTE | 2016-09-06 07:48 | PN ---
DATE: 09/05/2016 SUBJECTIVE: The patient is seen and examined on the bedside in her room on the medical floor. Daughter, grandkids and family were sitting around; looks a little bit better. Shortness of breath is better, but swelling of the legs is still there. No chest pain. No fever or chills. No hematuria or hematochezia. No headache, no dizziness. All 12-point review of system is negative except. One. PHYSICAL EXAMINATION: VITAL SIGNS: Temperature 98.6, pulse 82, respiratory rate 20, blood pressure 127/78, and pulse oximetry 97. HEENT: Head normocephalic, atraumatic. Eyes: PERRLA. Extraocular muscles intact. Conjunctivae clear. Nose patent. Mucous membranes moist. NECK: Supple. No carotid bruit, JVD or thyromegaly. CHEST: Bilaterally symmetrical. HEART: S1, S2 positive. LUNGS: Clear to auscultation. ABDOMEN: Soft. Bowel sounds present. No organomegaly. EXTREMITIES: Positive edema, no cyanosis. NEUROLOGIC: The patient is awake, alert, moving all 4 extremities. No focal deficit. MEDICATIONS: Reviewed by me. LABORATORY DATA: White blood cells 4.3, hemoglobin 12.8, hematocrit 39.9, platelets 197. Sodium 140, potassium 3.5, BUN 19, creatinine 0.8, glucose 257. ASSESSMENT AND PLAN: The patient is an 56-year-old lady with hypokalemia, uncontrolled diabetes mellitus, leukopenia, has new onset congestive heart failure, diastolic dysfunction which is improving. Continue diuretics and maintain electrolyte balance as per Dr. Chavez. Chest pain resolved. Further cardiac workup when congestive heart is resolved as per Dr. Chavez. The patient has obesity, left foot heel ulcer. Podiatry is on the case. History of electrolyte imbalance, getting adjusted. Fluid overload is getting better. Dr. Chavez discontinued the Norvas added metoprolol. Gastrointestinal and deep venous thrombosis prophylaxis. Repeat labs. Out of bed, physical therapy. We will follow up. Carie Acosta MD cc: [id number] TT: 09/06/2016 07:47:38 Confirmation # [id number] Dictation # [id number] charo PHILIP
[2016-09-06] MEDS: (Novolin R) Insulin Human Regular 100 units/ml vial SC SCH ×4 (07:49→21:39)
[2016-09-06 08:06] LABS: HEMATOCRIT 41.7 % (34.0-47.0); MEAN CELL VOLUME 80.6 fL (81.0-99.0); MEAN CORPUSCULAR HEMOGLOBIN 25.3 pg (27.0-31.0); MEAN CORPUSCULAR HGB CONC 31.4 g/dL (33.0-37.0); MEAN PLATELET VOLUME 8.8 fL (7.2-11.7); RED CELL DISTRIBUTION WIDTH 14.2 % (11.5-14.5); WHITE BLOOD COUNT 6.4 K/uL (4.8-10.8)
[2016-09-06 08:29] LABS: CHLORIDE 100 mmol/L (98-107); POTASSIUM 4.2 mmol/L (3.6-5.2); SODIUM 141 mmol/L (132-148)
[2016-09-06 08:31] LABS: GFR AFRICAN-AMERICAN > 60
[2016-09-06 08:32] LABS: ALB/GLOB RATIO 0.9 (1.0-2.1); ALKALINE PHOSPHATASE 104 U/L (38-126); ALT/SGPT 9 U/L (9-52); AST/SGOT 21 U/L (14-36); BILIRUBIN,TOTAL 0.9 mg/dL (0.2-1.3); BLOOD UREA NITROGEN 24 mg/dL (7-17); CALCIUM 8.8 mg/dl (8.6-10.4); CARBON DIOXIDE 32 mmol/L (22-30); GLUCOSE,RANDOM 161 mg/dL (65-105); TOTAL PROTEIN 6.7 g/dL (6.3-8.3)
[2016-09-06] MEDS: Potassium Chloride 20 mEq ER Tab PO SCH ×2 (09:15→17:48)
[2016-09-06] MEDS: Magnesium Oxide 400 mg Tab UD PO SCH ×2 (09:16→17:48)
[2016-09-06] MEDS: Enoxaparin 40 mg Syringe SC SCH (09:16)
[2016-09-06] MEDS: Bacitracin Ointment 30 GM TUBE TOP SCH (09:17)
[2016-09-06] MEDS: (Novolin 70/30) NPH/Regular 70/30 Units/ml 10 ml vial SC SCH ×2 (09:20→17:46)
--- NOTE | 2016-09-06 12:20 | CP.PCM.PN ---
Subjective - Date & Time of Evaluation Date of Evaluation: 09/06/16 Time of Evaluation: 12:18 - Subjective Subjective: 56 y/o female seen at bedside with attending Dr. Rodriguez for Left foot blisterous healed lesion. Patient is resting comfortably in NAD and AAOx3. She denies any acute events overnight. Patient denies any pain to her feet. She denies any n/v/f/c/d/sob. Objective - Vital Signs/Intake and Output Vital Signs (last 24 hours): Temp Pulse Resp BP Pulse Ox 98.3 F 81 20 185/84 H 99 09/06/16 07:00 09/06/16 08:00 09/06/16 07:00 09/06/16 09:16 09/06/16 07:00 Intake and Output: 09/06/16 09/06/16 06:59 18:59 Intake Total 560 Output Total 2350 Balance -1790 - Medications Medications: Current Medications Acetaminophen (Tylenol 325mg Tab) 650 mg PO Q8 PRN PRN Reason: Pain, moderate (4-7) Last Admin: 09/06/16 07:08 Dose: 650 mg Albuterol (Ventolin Hfa 90 Mcg/Actuation (8 G)) 2 puff IH Q6H PRN PRN Reason: Shortness of Breath Last Admin: 09/04/16 01:31 Dose: 2 puff Albuterol/Ipratropium (Duoneb 3 Mg/0.5 Mg (3 Ml) Ud) 3 ml INH RQ6 [facility] Last Admin: 09/06/16 09:04 Dose: 3 ml Aspirin (Aspirin) 325 mg PO DAILY [facility] Last Admin: 09/06/16 09:16 Dose: 325 mg Bacitracin (Bacitracin) 0 gm TOP DAILY [facility] Last Admin: 09/06/16 09:17 Dose: 1 gm Enoxaparin Sodium (Lovenox) 40 mg SC DAILY [facility] Last Admin: 09/06/16 09:16 Dose: 40 mg Famotidine (Pepcid) 40 mg PO DAILY [facility] Last Admin: 09/06/16 09:16 Dose: 40 mg Furosemide (Lasix) 80 mg IVP Q12 [facility] Last Admin: 09/06/16 09:16 Dose: 80 mg Glipizide (Glucotrol) 10 mg PO BID [facility] Last Admin: 09/06/16 09:15 Dose: 10 mg Insulin Human Isoph/Insulin Regular (Novolin 70/30 (70/30 Units/Ml) 10 Ml) 10 units SC BID [facility] Last Admin: 09/06/16 09:20 Dose: 10 units Insulin Human Regular (Novolin R) 0 unit SC ACHS [facility] PRN Reason: Protocol Last Admin: 09/06/16 07:49 Dose: 1 unit Losartan Potassium (Cozaar) 100 mg PO DAILY [facility] Last Admin: 09/06/16 09:16 Dose: 100 mg Magnesium Oxide (Mag-Ox) 400 mg PO BID [facility] Last Admin: 09/06/16 09:16 Dose: 400 mg Metoprolol Tartrate (Lopressor) 50 mg PO BID [facility] Last Admin: 09/06/16 09:19 Dose: 50 mg Potassium Chloride (K-Dur 20 Meq Er Tab) 40 meq PO BID [facility] Last Admin: 09/06/16 09:15 Dose: 40 meq Rosuvastatin Calcium (Crestor) 20 mg PO HS [facility] Last Admin: 09/05/16 21:53 Dose: 20 mg Spironolactone (Aldactone) 25 mg PO BID [facility] Last Admin: 09/06/16 09:16 Dose: 25 mg - Labs Labs: 09/06/16 08:01 09/06/16 08:01 - Constitutional Appears: Well, Non-toxic, No Acute Distress - Extremities Exam Additional comments: Vasc: DP/PT 1/4, Temp gradient wnl, Cap fill time < 3 x 10 Derm: Mild diffuse edema noted surrounding the left nakle but non pitting, no erythema, no open lesions, no interdigital maceration, no clinical signs of infection noted, on the posterior aspect of left heel there is a heeled blisterous lesion noted, there is no fluctuance noted underlying the healed lesion, no opening of the blister to underlying tissue is noted Neuro: Grossly itnact Ortho: Limited - Neurological Exam Neurological Exam: Alert, Awake, Oriented x3 - Psychiatric Exam Psychiatric exam: Normal Affect, Normal Mood Assessment and Plan - Assessment and Plan (Free Text) Assessment: 56 y/o female seen and evaluated with left posterior ankle healed blisterous lesion. Plan: Patient evaluated and chart reivewed Seen with attending Dr. Rodriguez. Dressing removed; healed blister noted Area redressed with overlying xeroform and DSD to prevent reformation. X-rays ordered b/l to eval to completely r/o any underlying abscess and to eval right foot old fracture site. wound is stable at this time; Will continue to follow.
--- NOTE | 2016-09-06 17:31 | CP.PCM.PN ---
Subjective - Date & Time of Evaluation Date of Evaluation: 09/06/16 Time of Evaluation: 17:27 - Subjective Subjective: Shortness of breath have improved but edema is still there. Objective - Vital Signs/Intake and Output Vital Signs (last 24 hours): Temp Pulse Resp BP Pulse Ox 98.4 F 89 20 111/68 100 09/06/16 15:00 09/06/16 15:00 09/06/16 15:00 09/06/16 15:00 09/06/16 15:00 Intake and Output: 09/06/16 09/06/16 06:59 18:59 Intake Total 560 Output Total 2350 1200 Balance -1790 -1200 - Medications Medications: Current Medications Acetaminophen (Tylenol 325mg Tab) 650 mg PO Q8 PRN PRN Reason: Pain, moderate (4-7) Last Admin: 09/06/16 07:08 Dose: 650 mg Albuterol (Ventolin Hfa 90 Mcg/Actuation (8 G)) 2 puff IH Q6H PRN PRN Reason: Shortness of Breath Last Admin: 09/04/16 01:31 Dose: 2 puff Albuterol/Ipratropium (Duoneb 3 Mg/0.5 Mg (3 Ml) Ud) 3 ml INH RQ6 [facility] Last Admin: 09/06/16 13:28 Dose: 3 ml Aspirin (Aspirin) 325 mg PO DAILY [facility] Last Admin: 09/06/16 09:16 Dose: 325 mg Bacitracin (Bacitracin) 0 gm TOP DAILY [facility] Last Admin: 09/06/16 09:17 Dose: 1 gm Enoxaparin Sodium (Lovenox) 40 mg SC DAILY [facility] Last Admin: 09/06/16 09:16 Dose: 40 mg Famotidine (Pepcid) 40 mg PO DAILY [facility] Last Admin: 09/06/16 09:16 Dose: 40 mg Furosemide (Lasix) 80 mg IVP Q12 [facility] Last Admin: 09/06/16 09:16 Dose: 80 mg Glipizide (Glucotrol) 10 mg PO BID [facility] Last Admin: 09/06/16 09:15 Dose: 10 mg Insulin Human Isoph/Insulin Regular (Novolin 70/30 (70/30 Units/Ml) 10 Ml) 10 units SC BID [facility] Last Admin: 09/06/16 09:20 Dose: 10 units Insulin Human Regular (Novolin R) 0 unit SC ACHS [facility] PRN Reason: Protocol Last Admin: 09/06/16 12:30 Dose: 1 unit Losartan Potassium (Cozaar) 100 mg PO DAILY [facility] Last Admin: 09/06/16 09:16 Dose: 100 mg Magnesium Oxide (Mag-Ox) 400 mg PO BID [facility] Last Admin: 09/06/16 09:16 Dose: 400 mg Metoprolol Tartrate (Lopressor) 50 mg PO BID [facility] Last Admin: 09/06/16 09:19 Dose: 50 mg Potassium Chloride (K-Dur 20 Meq Er Tab) 40 meq PO BID [facility] Last Admin: 09/06/16 09:15 Dose: 40 meq Rosuvastatin Calcium (Crestor) 20 mg PO HS [facility] Last Admin: 09/05/16 21:53 Dose: 20 mg Spironolactone (Aldactone) 25 mg PO BID [facility] Last Admin: 09/06/16 09:16 Dose: 25 mg - Labs Labs: 09/06/16 08:01 09/06/16 08:01 - Neck Exam Neck Exam: Normal Inspection - Respiratory Exam Respiratory Exam: NORMAL BREATHING PATTERN - Cardiovascular Exam Cardiovascular Exam: REGULAR RHYTHM - Extremities Exam Extremities Exam: Pedal Edema - Neurological Exam Neurological Exam: Oriented x3 Assessment and Plan (1) New onset of congestive heart failure Assessment & Plan: Diuresis with fluid restriction. Status: Acute (2) Chest pain Assessment & Plan: Improved. no new episodes. Status: Acute
--- NOTE | 2016-09-06 19:56 | CP.PCM.CON ---
History of Present Illness - History of Present Illness History of Present Illness: uncontrolled diabetes Past Patient History - Past Medical History & Family History Past Medical History?: Yes - Past Social History Smoking Status: Never Smoked - CARDIAC Hx Hypercholesterolemia: Yes Hx Hypertension: Yes ("border line") - PULMONARY Hx Asthma: Yes - NEUROLOGICAL Hx Neurological Disorder: No - HEENT Hx HEENT Problems: No - RENAL Hx Chronic Kidney Disease: No - ENDOCRINE/METABOLIC Hx Diabetes Mellitus Type 2: Yes - HEMATOLOGICAL/ONCOLOGICAL Hx Blood Transfusions: No - INTEGUMENTARY Other/Comment: abscess right axilla 2010 - MUSCULOSKELETAL/RHEUMATOLOGICAL Hx Falls: No - GASTROINTESTINAL Hx Gastrointestinal Disorders: No - GENITOURINARY/GYNECOLOGICAL Hx Genitourinary Disorders: No - PSYCHIATRIC Hx Substance Use: No - SURGICAL HISTORY Hx Surgeries: Yes Hx Section: Yes (1981, 1983, 1984) Other/Comment: abcess via axillary area(right)2010 - ANESTHESIA Hx Anesthesia: Yes Hx Malignant Hyperthermia: No Meds Allergies/Adverse Reactions: Allergies Allergy/AdvReac Type Severity Reaction Status Date / Time No Known Allergies Allergy Verified 05/10/15 16:43 - Medications Medications: Current Medications Acetaminophen (Tylenol 325mg Tab) 650 mg PO Q8 PRN PRN Reason: Pain, moderate (4-7) Last Admin: 09/06/16 07:08 Dose: 650 mg Albuterol (Ventolin Hfa 90 Mcg/Actuation (8 G)) 2 puff IH Q6H PRN PRN Reason: Shortness of Breath Last Admin: 09/04/16 01:31 Dose: 2 puff Albuterol/Ipratropium (Duoneb 3 Mg/0.5 Mg (3 Ml) Ud) 3 ml INH RQ6 [facility] Last Admin: 09/06/16 13:28 Dose: 3 ml Aspirin (Aspirin) 325 mg PO DAILY [facility] Last Admin: 09/06/16 09:16 Dose: 325 mg Bacitracin (Bacitracin) 0 gm TOP DAILY [facility] Last Admin: 09/06/16 09:17 Dose: 1 gm Enoxaparin Sodium (Lovenox) 40 mg SC DAILY [facility] Last Admin: 09/06/16 09:16 Dose: 40 mg Famotidine (Pepcid) 40 mg PO DAILY [facility] Last Admin: 09/06/16 09:16 Dose: 40 mg Furosemide (Lasix) 80 mg IVP Q12 [facility] Last Admin: 09/06/16 09:16 Dose: 80 mg Glipizide (Glucotrol) 10 mg PO BID [facility] Last Admin: 09/06/16 17:48 Dose: 10 mg Insulin Human Isoph/Insulin Regular (Novolin 70/30 (70/30 Units/Ml) 10 Ml) 10 units SC BID [facility] Last Admin: 09/06/16 17:46 Dose: 10 units Insulin Human Regular (Novolin R) 0 unit SC ACHS [facility] PRN Reason: Protocol Last Admin: 09/06/16 17:47 Dose: 1 unit Losartan Potassium (Cozaar) 100 mg PO DAILY [facility] Last Admin: 09/06/16 09:16 Dose: 100 mg Magnesium Oxide (Mag-Ox) 400 mg PO BID [facility] Last Admin: 09/06/16 17:48 Dose: 400 mg Metoprolol Tartrate (Lopressor) 50 mg PO BID [facility] Last Admin: 09/06/16 17:48 Dose: 50 mg Potassium Chloride (K-Dur 20 Meq Er Tab) 40 meq PO BID [facility] Last Admin: 09/06/16 17:48 Dose: 40 meq Rosuvastatin Calcium (Crestor) 20 mg PO [facility] Last Admin: 09/05/16 21:53 Dose: 20 mg Spironolactone (Aldactone) 25 mg PO BID [facility] Last Admin: 09/06/16 17:48 Dose: 25 mg Results - Vital Signs Recent Vital Signs: Last Vital Signs Temp 98.4 F 09/06/16 15:00 Pulse 102 H 09/06/16 17:51 Resp 20 09/06/16 15:00 BP 153/89 H 09/06/16 17:51 Pulse Ox 100 09/06/16 15:00 - Labs Result Diagrams: 09/06/16 08:01 09/06/16 08:01 Labs: Laboratory Results - last 24 hr 09/05/16 09/06/16 09/06/16 21:31 06:33 08:01 WBC RBC Hgb Hct MCV MCH MCHC RDW Plt Count MPV Sodium 141 Potassium 4.2 Chloride 100 Carbon Dioxide 32 H Anion Gap 13 BUN 24 H Creatinine 0.8 Est GFR ( Amer) > 60 Est GFR (Non-Af Amer) > 60 POC Glucose (mg/dL) 209 H 195 H Random Glucose 161 H Calcium 8.8 Total Bilirubin 0.9 AST 21 ALT 9 D Alkaline Phosphatase 104 Total Protein 6.7 Albumin 3.2 L Globulin 3.5 Albumin/Globulin Ratio 0.9 L 09/06/16 09/06/16 09/06/16 08:01 12:10 16:52 WBC 6.4 RBC 5.18 Hgb 13.1 Hct 41.7 MCV 80.6 L MCH 25.3 L MCHC 31.4 L RDW 14.2 Plt Count 226 MPV 8.8 Sodium Potassium Chloride Carbon Dioxide Anion Gap BUN Creatinine Est GFR ( Amer) Est GFR (Non-Af Amer) POC Glucose (mg/dL) 162 H 193 H Random Glucose Calcium Total Bilirubin AST ALT Alkaline Phosphatase Total Protein Albumin Globulin Albumin/Globulin Ratio Assessment & Plan (1) Diabetes mellitus, insulin dependent (IDDM), uncontrolled Assessment and Plan: Endocrine consult reason for consult: uncontrolled diabetes Ms. Isaac is 56 y/o admitted for sob / CHF consult request was found on consult request list yesterday , floor was contacted today , consult request was confirmed , pt seen today as per pt. has DM 1998 (-) neuropathy , (+) retinopathy , (-) nephropathy , with left leg blister outpatient diabetes management regimen : humalin 70/30 30 units bid inpatient diabetes management regimen : glipizide 10 mg po bid & humalin 70/30 10 units bid , humalin R low dose coverage blood glucose log : 190-200 occasioal 150/160 NO hypoglycemia Allergy NKDA Past medical history : HTN , hyperlipidemia Past surgical history : CS x 3 Psychiatry history : denies Social history : denies smoking , ETOH use or illicit drug use Family history : mother with dm ROS: Constitutional: denies fever ,tiredness/weakness .HEENT: denies earache, change in voice .Respiratory: denies cough, (+) sob . CVS :no chest pain, no palpitations . Abdomen : no abdominal pain, no nausea /vomiting , no change bowel movement . 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 Extremities : (+) edema , no tremors .Skin: no itching, no rash Physical exam Well developed AAO x3 , ,NAD , on oxygen via NC , hardly answering the questions , eyes closed while taking VSS HEENT: norm cephalic, atraumatic , no lid lag , no exophthalmos NECK: supple, no palpable lymphadenopathy THYROID: no palpable thyromegaly , not tender CHEST: fair air entry, bilateral, CVS: S1,S2 ABDOMEN: bowel sound present, benign, obese, no wide purple striae , no bruises EXTREMITIES: pitting edema, clubbing or cyanosis, no palpable hand tremors Skin : acanthosis nigricans lab: tsh 2.49 , a1c 11.9 , TG 147 , ldl 163 , NT-proNTP 1290 Assessment uncontrolled IDDM with retinopathy & leg blisters CHF morbid obesity plan d/c glipizide continue Novoloin R low dose coverage, no 3 am coverage increase novoloin 70/30 13 bid with meals , if eat > 60% start levemir 10 units @ 9pm daily starting tomorrow 09/07/2016 on Crestor will monitor Status: Acute (2) New onset of congestive heart failure Status: Acute (3) Morbid obesity Status: Acute
[2016-09-07] MEDS: Albuterol-Ipratrop 3 mg / 0.5 (3 ml) UD INH SCH ×4 (02:26→19:43)
[2016-09-07] MEDS: (Novolin R) Insulin Human Regular 100 units/ml vial SC SCH ×4 (08:18→21:56)
[2016-09-07] MEDS: (Novolin 70/30) NPH/Regular 70/30 Units/ml 10 ml vial SC SCH ×2 (08:18→17:56)
--- NOTE | 2016-09-07 08:19 | PN ---
DATE: 09/06/2016 The patient is a 56-year-old female. The patient was seen and examined on the bedside. Swelling of the legs is getting better. Shortness of breath is getting better, but still having shortness of breath when she is moving. Right upper extremity is swollen because of infiltration of the IV line. The nurse changed IV line and patient instructed to keep the arm elevated. PHYSICAL EXAMINATION: VITAL SIGNS: Temperature is 98.4, pulse 80 , respirations 20, blood pressure 111/68, pulse oximetry 100%. HEENT: Head normocephalic, atraumatic. Eyes: PERRLA. Extraocular muscles intact. Conjunctivae pink. Eyelids unremarkable. Nose patent. Mucous membranes moist. NECK: Supple. No carotid bruit, no JVD, no thyromegaly. CHEST: Bilaterally symmetrical. HEART: S1 and S2 positive. LUNGS: Clear to auscultation. ABDOMEN: Soft. Bowel sounds positive. No organomegaly. EXTREMITIES: No edema, no cyanosis. NEUROLOGIC: The patient is awake, alert, moving all 4 extremities. No focal deficits. MEDICATIONS: Reviewed by me. LABORATORIES: Reviewed by me. ASSESSMENT AND PLAN: The patient is a 56-year-old male with hyperglycemia, increased BUN, new onset of congestive heart failure. Continue diuresis, fluid restriction. Chest pain improved , episode infiltration of the right upper extremity. The patient went for duplex of the right upper extremity, seems to be negative, but official report pending. Seen by Yao Higginbotham. The patient has diabetes mellitus. financial controller is on the case . We will continue Aldactone and spironolactone, aspirin, losartan for high blood pressure and Crestor for hypercholesterolemia. Potassium is replaced, furosemide is given, Levemir for diabetes mellitus, metoprolol for blood pressure, Lovenox for deep venous thrombosis prophylaxis, Tylenol because patient has pain in the right upper extremity. Gastrointestinal and deep venous thrombosis prophylaxis. Repeat labs. We will follow up. Carie Acosta MD cc: [id number] TT: 09/07/2016 08:18:26 Confirmation # [id number] Dictation # [id number] MTDD
[2016-09-07] MEDS: Potassium Chloride 20 mEq ER Tab PO SCH ×2 (10:03→17:57)
[2016-09-07] MEDS: Magnesium Oxide 400 mg Tab UD PO SCH ×2 (10:04→17:57)
[2016-09-07] MEDS: Enoxaparin 40 mg Syringe SC SCH (10:04)
[2016-09-07] MEDS: Bacitracin Ointment 30 GM TUBE TOP SCH (10:22)
--- NOTE | 2016-09-07 14:51 | CP.PCM.PN ---
Subjective - Date & Time of Evaluation Date of Evaluation: 09/07/16 Time of Evaluation: 14:49 - Subjective Subjective: Complains of pain in the right shoulder and arm with some gastric discomfort. No chest pain but some shortness of breath. Objective - Vital Signs/Intake and Output Vital Signs (last 24 hours): Temp Pulse Resp BP Pulse Ox 97.9 F 90 20 134/75 96 09/07/16 08:20 09/07/16 08:20 09/07/16 08:20 09/07/16 10:06 09/07/16 08:20 Intake and Output: 09/07/16 09/07/16 06:59 18:59 Intake Total 360 240 Output Total 1600 800 Balance -1240 -560 - Medications Medications: Current Medications Acetaminophen (Tylenol 325mg Tab) 650 mg PO Q8 PRN PRN Reason: Pain, moderate (4-7) Last Admin: 09/06/16 07:08 Dose: 650 mg Albuterol (Ventolin Hfa 90 Mcg/Actuation (8 G)) 2 puff IH Q6H PRN PRN Reason: Shortness of Breath Last Admin: 09/04/16 01:31 Dose: 2 puff Albuterol/Ipratropium (Duoneb 3 Mg/0.5 Mg (3 Ml) Ud) 3 ml INH RQ6 [facility] Last Admin: 09/07/16 13:08 Dose: Not Given Aspirin (Aspirin) 325 mg PO DAILY [facility] Last Admin: 09/07/16 10:04 Dose: 325 mg Bacitracin (Bacitracin) 0 gm TOP DAILY [facility] Last Admin: 09/07/16 10:22 Dose: 1 gm Enoxaparin Sodium (Lovenox) 40 mg SC DAILY [facility] Last Admin: 09/07/16 10:04 Dose: 40 mg Famotidine (Pepcid) 40 mg PO DAILY [facility] Last Admin: 09/07/16 10:04 Dose: 40 mg Furosemide (Lasix) 80 mg IVP Q12 [facility] Last Admin: 09/07/16 10:06 Dose: 80 mg Insulin Detemir (Levemir) 10 unit SC HS [facility] Insulin Human Isoph/Insulin Regular (Novolin 70/30 (70/30 Units/Ml) 10 Ml) 13 units SC BIDCC [facility] Last Admin: 09/07/16 08:18 Dose: 13 units Insulin Human Regular (Novolin R) 0 unit SC ACHS [facility] PRN Reason: Protocol Last Admin: 09/07/16 12:24 Dose: 2 unit Losartan Potassium (Cozaar) 100 mg PO DAILY [facility] Last Admin: 09/07/16 10:04 Dose: 100 mg Magnesium Oxide (Mag-Ox) 400 mg PO BID [facility] Last Admin: 09/07/16 10:04 Dose: 400 mg Metoprolol Tartrate (Lopressor) 50 mg PO BID [facility] Last Admin: 09/07/16 10:30 Dose: 50 mg Potassium Chloride (K-Dur 20 Meq Er Tab) 40 meq PO BID [facility] Last Admin: 09/07/16 10:03 Dose: 40 meq Rosuvastatin Calcium (Crestor) 20 mg PO HS [facility] Last Admin: 09/06/16 21:43 Dose: 20 mg Spironolactone (Aldactone) 25 mg PO BID [facility] Last Admin: 09/07/16 10:04 Dose: 25 mg Tramadol HCl (Ultram) 50 mg PO TID PRN PRN Reason: Pain, moderate (4-7) Last Admin: 09/07/16 12:25 Dose: 50 mg - Labs Labs: 09/06/16 08:01 09/06/16 08:01 - Neck Exam Neck Exam: Normal Inspection - Respiratory Exam Respiratory Exam: NORMAL BREATHING PATTERN - Cardiovascular Exam Cardiovascular Exam: REGULAR RHYTHM - Extremities Exam Extremities Exam: Pedal Edema - Neurological Exam Neurological Exam: Oriented x3 Assessment and Plan (1) New onset of congestive heart failure Assessment & Plan: Improving , continue diuretics with electrolyte supplementation. Status: Acute (2) Chest pain Assessment & Plan: Non-cardiac , may need some G I work-up. Status: Acute
--- NOTE | 2016-09-07 20:42 | CP.PCM.PN ---
Subjective - Date & Time of Evaluation Date of Evaluation: 09/07/16 Time of Evaluation: 20:39 - Subjective Subjective: uncontrolled IDDM Objective - Vital Signs/Intake and Output Vital Signs (last 24 hours): Temp Pulse Resp BP Pulse Ox 97.3 F L 80 20 119/78 98 09/07/16 16:00 09/07/16 18:02 09/07/16 18:02 09/07/16 18:02 09/07/16 16:00 Intake and Output: 09/07/16 09/08/16 18:59 06:59 Intake Total 240 Output Total 800 Balance -560 - Medications Medications: Current Medications Acetaminophen (Tylenol 325mg Tab) 650 mg PO Q8 PRN PRN Reason: Pain, moderate (4-7) Last Admin: 09/06/16 07:08 Dose: 650 mg Albuterol (Ventolin Hfa 90 Mcg/Actuation (8 G)) 2 puff IH Q6H PRN PRN Reason: Shortness of Breath Last Admin: 09/04/16 01:31 Dose: 2 puff Albuterol/Ipratropium (Duoneb 3 Mg/0.5 Mg (3 Ml) Ud) 3 ml INH RQ6 [facility] Last Admin: 09/07/16 19:43 Dose: 3 ml Aspirin (Aspirin) 325 mg PO DAILY [facility] Last Admin: 09/07/16 10:04 Dose: 325 mg Bacitracin (Bacitracin) 0 gm TOP DAILY [facility] Last Admin: 09/07/16 10:22 Dose: 1 gm Enoxaparin Sodium (Lovenox) 40 mg SC DAILY [facility] Last Admin: 09/07/16 10:04 Dose: 40 mg Famotidine (Pepcid) 40 mg PO DAILY [facility] Last Admin: 09/07/16 10:04 Dose: 40 mg Furosemide (Lasix) 80 mg IVP Q12 [facility] Last Admin: 09/07/16 10:06 Dose: 80 mg Insulin Detemir (Levemir) 12 unit SC HS [facility] Insulin Human Isoph/Insulin Regular (Novolin 70/30 (70/30 Units/Ml) 10 Ml) 13 units SC BIDCC [facility] Last Admin: 09/07/16 17:56 Dose: 13 units Insulin Human Regular (Novolin R) 0 unit SC ACHS [facility] PRN Reason: Protocol Last Admin: 04/30/17 17:58 Dose: 3 unit Losartan Potassium (Cozaar) 100 mg PO DAILY [facility] Last Admin: 09/07/16 10:04 Dose: 100 mg Magnesium Oxide (Mag-Ox) 400 mg PO BID [facility] Last Admin: 09/07/16 17:57 Dose: 400 mg Metoprolol Tartrate (Lopressor) 50 mg PO BID [facility] Last Admin: 09/07/16 17:57 Dose: 50 mg Potassium Chloride (K-Dur 20 Meq Er Tab) 40 meq PO BID [facility] Last Admin: 09/07/16 17:57 Dose: 40 meq Rosuvastatin Calcium (Crestor) 20 mg PO HS [facility] Last Admin: 09/06/16 21:43 Dose: 20 mg Spironolactone (Aldactone) 25 mg PO BID [facility] Last Admin: 09/07/16 17:57 Dose: 25 mg Tramadol HCl (Ultram) 50 mg PO TID PRN PRN Reason: Pain, moderate (4-7) Last Admin: 09/07/16 12:25 Dose: 50 mg - Labs Labs: 09/06/16 08:01 09/06/16 08:01 Assessment and Plan (1) Diabetes mellitus, insulin dependent (IDDM), uncontrolled Assessment & Plan: Endocrine consult reason for consult: uncontrolled diabetes Ms. Isaac is 56 y/o admitted for sob / CHF consult request was found on consult request list yesterday , floor was contacted today , consult request was confirmed , pt seen today as per pt. has DM 1998 (-) neuropathy , (+) retinopathy , (-) nephropathy , with left leg blister outpatient diabetes management regimen : humalin 70/30 30 units bid inpatient diabetes management regimen : glipizide 10 mg po bid & humalin 70/30 10 units bid , humalin R low dose coverage blood glucose log : 190-200 NO hypoglycemia Allergy NKDA Past medical history : HTN , hyperlipidemia Past surgical history : CS x 3 Psychiatry history : denies Social history : denies smoking , ETOH use or illicit drug use Family history : mother with dm ROS: Constitutional: denies fever ,tiredness/weakness .HEENT: denies earache, change in voice .Respiratory: denies cough, (+) sob . CVS :no chest pain, no palpitations . Abdomen : no abdominal pain, no nausea /vomiting , no change bowel movement . 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 Extremities : (+) edema , no tremors .Skin: no itching, no rash Physical exam Well developed AAO x3 , ,NAD VSS HEENT: norm cephalic, atraumatic , no lid lag , no exophthalmos NECK: supple, no palpable lymphadenopathy THYROID: no palpable thyromegaly , not tender CHEST: fair air entry, bilateral, CVS: S1,S2 ABDOMEN: bowel sound present, benign, obese, no wide purple striae , no bruises EXTREMITIES: pitting edema, clubbing or cyanosis, no palpable hand tremors Skin : acanthosis nigricans lab: tsh 2.49 , a1c 11.9 , TG 147 , ldl 163 , NT-proNTP 1290 Assessment uncontrolled IDDM with retinopathy & leg blisters CHF morbid obesity plan continue Novoloin R low dose coverage, no 3 am coverage continue novoloin 70/30 13 bid with meals , if eat > 60% increase levemir 12 units @ 9pm daily starting tomorrow 09/07/2016 on Crestor will monitor Status: Acute (2) New onset of congestive heart failure Status: Acute (3) Morbid obesity Status: Acute
[2016-09-07] MEDS ORDERED: Insulin Detemir 100 units/ml Vial (Levemir) SC SCH (22:00)
[2016-09-07] MEDS: Insulin Detemir 100 units/ml Vial (Levemir) SC SCH (22:04)
[2016-09-07] MEDS ORDERED: cefTRIAXone IV 1 gm in Dextros 50 ML IVPB ONE (22:38)
[2016-09-08] MEDS: Albuterol-Ipratrop 3 mg / 0.5 (3 ml) UD INH SCH ×3 (01:42→13:13)
--- NOTE | 2016-09-08 07:57 | PN ---
DATE: 09/07/2016 SUBJECTIVE: The patient seen and examined on the bedside. Looks comfortable. Still has swelling of the legs. Still has right upper extremity pain, tenderness and swollen. It is hard to move. No fe steph, no chills. No nausea, vomiting, or diarrhea. No hematuria or hematochezia. No headache, no di zziness. PHYSICAL EXAMINATION: VITAL SIGNS: Temperature 97.3, pulse 80, blood pressure 137/80, respiratory rate 20. HEENT: Head normocephalic, atraumatic. Eyes: PERRLA. Extraocular movements intact. Conjunctivae pink. Eyelids unremarkable. Nose patent. NECK: Supple. No carotid bruit, JVD or thyromegaly. CHEST: Bilaterally symmetrical. HEART: S1, S2 positive. LUNGS: Clear to auscultation. ABDOMEN: Soft. Bowel sounds present. No organomegaly. EXTREMITIES: No edema, no cyanosis. NEUROLOGIC: The patient is awake, alert. Moving all 4 extremities. No focal deficits. MEDICATIONS: Spironolactone, aspirin, Bacitracin, losartan, Crestor, DuoNeb, potassium, furosemide. LABORATORY DATA: White blood cell is 6.4, hemoglobin 13.1, hematocrit 41.7, platelets 226. Glucose 332, 292. ASSESSMENT AND PLAN: The patient is a 56-year-old lady with leukopenia, uncontrolled diabetes mellit us, proteinuria, glucosuria, hematuria; diabetes, uncontrolled; had exacerbation of congestive heart failure, morbid obesity. Continue with Novolin-R low dose coverage. Continue Crestor. Seen by Dr. Chavez (rubber press tender). Swelling of the right upper extremity, cellulitis, rule out deep venous thromb osis, but Doppler of the right upper extremity is negative. Appreciate rubber press tender's and endocrinol ogist's input. I ordered CRISTAL stocking. For pain in the right upper extremity, I gave her tramadol. Continue Aldactone and Lasix twice a day, aspirin, Bactroban cream on the right lower extremity, [place] for hypertension, Crestor for hypercholesterolemia, metoprolol for hypertension. The patient i s not allergic with penicillin. Will start Rocephin for cellulitis of the right upper extremity. Wi ll follow up. Carie Acosta MD cc: [id number] TT: 09/08/2016 07:56:24 Confirmation # [id number] Dictation # [id number] mn
[2016-09-08] MEDS: (Novolin 70/30) NPH/Regular 70/30 Units/ml 10 ml vial SC SCH ×2 (08:18→17:45)
[2016-09-08] MEDS: (Novolin R) Insulin Human Regular 100 units/ml vial SC SCH ×4 (08:19→21:53)
[2016-09-08] MEDS: Bacitracin Ointment 30 GM TUBE TOP SCH (09:33)
[2016-09-08] MEDS: Enoxaparin 40 mg Syringe SC SCH (09:37)
[2016-09-08] MEDS: Magnesium Oxide 400 mg Tab UD PO SCH (09:38)
[2016-09-08] MEDS: Potassium Chloride 20 mEq ER Tab PO SCH (09:39)
--- NOTE | 2016-09-08 15:05 | CP.PCM.PN ---
Subjective - Date & Time of Evaluation Date of Evaluation: 09/08/16 Time of Evaluation: 15:02 - Subjective Subjective: Still complains of pain in the right arm. Shortness of breath have improved. Objective - Vital Signs/Intake and Output Vital Signs (last 24 hours): Temp Pulse Resp BP Pulse Ox 98.2 F 105 H 18 141/83 97 09/08/16 07:20 09/08/16 09:00 09/08/16 07:20 09/08/16 09:37 09/08/16 07:20 Intake and Output: 09/08/16 09/08/16 06:59 18:59 Intake Total 440 800 Output Total 1550 Balance -1110 800 - Medications Medications: Current Medications Acetaminophen (Tylenol 325mg Tab) 650 mg PO Q8 PRN PRN Reason: Pain, moderate (4-7) Last Admin: 09/06/16 07:08 Dose: 650 mg Albuterol (Ventolin Hfa 90 Mcg/Actuation (8 G)) 2 puff IH Q6H PRN PRN Reason: Shortness of Breath Last Admin: 09/04/16 01:31 Dose: 2 puff Aspirin (Aspirin) 325 mg PO DAILY [facility] Last Admin: 09/08/16 09:38 Dose: 325 mg Bacitracin (Bacitracin) 0 gm TOP DAILY [facility] Last Admin: 09/08/16 09:33 Dose: 1 applic Enoxaparin Sodium (Lovenox) 40 mg SC DAILY [facility] Last Admin: 09/08/16 09:37 Dose: 40 mg Famotidine (Pepcid) 40 mg PO DAILY [facility] Last Admin: 09/08/16 09:38 Dose: 40 mg Furosemide (Lasix) 80 mg IVP Q12 [facility] Last Admin: 09/08/16 09:37 Dose: 80 mg Insulin Detemir (Levemir) 12 unit SC HS [facility] Last Admin: 09/07/16 22:04 Dose: 12 unit Insulin Human Isoph/Insulin Regular (Novolin 70/30 (70/30 Units/Ml) 10 Ml) 13 units SC BIDCC [facility] Last Admin: 09/08/16 08:18 Dose: 13 units Insulin Human Regular (Novolin R) 0 unit SC ACHS [facility] PRN Reason: Protocol Last Admin: 09/08/16 12:30 Dose: 3 unit Losartan Potassium (Cozaar) 100 mg PO DAILY [facility] Last Admin: 09/08/16 09:37 Dose: 100 mg Magnesium Oxide (Mag-Ox) 400 mg PO BID [facility] Last Admin: 09/08/16 09:38 Dose: 400 mg Metoprolol Tartrate (Lopressor) 50 mg PO BID [facility] Last Admin: 09/08/16 09:38 Dose: 50 mg Potassium Chloride (K-Dur 20 Meq Er Tab) 40 meq PO BID [facility] Last Admin: 09/08/16 09:39 Dose: 40 meq Rosuvastatin Calcium (Crestor) 20 mg PO HS [facility] Last Admin: 09/07/16 22:05 Dose: 20 mg Spironolactone (Aldactone) 25 mg PO BID [facility] Last Admin: 09/08/16 09:38 Dose: 25 mg Tramadol HCl (Ultram) 50 mg PO TID PRN PRN Reason: Pain, moderate (4-7) Last Admin: 09/07/16 12:25 Dose: 50 mg - Labs Labs: 09/06/16 08:01 09/06/16 08:01 - Neck Exam Neck Exam: Normal Inspection - Respiratory Exam Respiratory Exam: NORMAL BREATHING PATTERN - Cardiovascular Exam Cardiovascular Exam: REGULAR RHYTHM - Extremities Exam Extremities Exam: Normal Inspection - Neurological Exam Neurological Exam: Oriented x3 Assessment and Plan (1) New onset of congestive heart failure Assessment & Plan: Have improved, when her non-cardiac pain issue is resolved will consider further cardiac work-up. Status: Acute (2) Chest pain Assessment & Plan: Resolved and at this time only complaint is pain in the right arm and shoulder. Discussed with staff and medicine was adjusted. Plan is to check labs in AM and make further adjustments accordingly. Status: Acute
[2016-09-08] MEDS: Insulin Detemir 100 units/ml Vial (Levemir) SC SCH (22:01)
--- NOTE | 2016-09-08 23:16 | CP.PCM.PN ---
Subjective - Date & Time of Evaluation Date of Evaluation: 09/08/16 Time of Evaluation: 23:14 - Subjective Subjective: uncontrolled IDDM Objective - Vital Signs/Intake and Output Vital Signs (last 24 hours): Temp Pulse Resp BP Pulse Ox 98.1 F 93 H 20 140/84 98 09/08/16 15:28 09/08/16 15:28 09/08/16 15:28 09/08/16 17:43 09/08/16 15:28 Intake and Output: 09/08/16 09/09/16 18:59 06:59 Intake Total 800 Balance 800 - Medications Medications: Current Medications Acetaminophen (Tylenol 325mg Tab) 650 mg PO Q8 PRN PRN Reason: Pain, moderate (4-7) Last Admin: 09/06/16 07:08 Dose: 650 mg Albuterol (Ventolin Hfa 90 Mcg/Actuation (8 G)) 2 puff IH Q6H PRN PRN Reason: Shortness of Breath Last Admin: 09/04/16 01:31 Dose: 2 puff Aspirin (Aspirin) 325 mg PO DAILY [facility] Last Admin: 09/08/16 09:38 Dose: 325 mg Bacitracin (Bacitracin) 0 gm TOP DAILY [facility] Last Admin: 09/08/16 09:33 Dose: 1 applic Enoxaparin Sodium (Lovenox) 40 mg SC DAILY [facility] Last Admin: 09/08/16 09:37 Dose: 40 mg Famotidine (Pepcid) 40 mg PO DAILY [facility] Last Admin: 09/08/16 09:38 Dose: 40 mg Furosemide (Lasix) 40 mg PO BID [facility] Last Admin: 09/08/16 17:43 Dose: 40 mg Insulin Detemir (Levemir) 15 unit SC HS [facility] Insulin Human Isoph/Insulin Regular (Novolin 70/30 (70/30 Units/Ml) 10 Ml) 15 units SC BIDPC [facility] Insulin Human Regular (Novolin R) 0 unit SC ACHS [facility] PRN Reason: Protocol Last Admin: 09/08/16 21:53 Dose: Not Given Losartan Potassium (Cozaar) 100 mg PO DAILY [facility] Last Admin: 09/08/16 09:37 Dose: 100 mg Magnesium Oxide (Mag-Ox) 400 mg PO DAILY [facility] Metoprolol Tartrate (Lopressor) 50 mg PO BID [facility] Last Admin: 09/08/16 17:44 Dose: 50 mg Rosuvastatin Calcium (Crestor) 20 mg PO HS [facility] Last Admin: 09/08/16 21:59 Dose: 20 mg Spironolactone (Aldactone) 25 mg PO BID [facility] Last Admin: 09/08/16 17:44 Dose: 25 mg Tramadol HCl (Ultram) 50 mg PO TID PRN PRN Reason: Pain, moderate (4-7) Last Admin: 09/07/16 12:25 Dose: 50 mg - Labs Labs: 09/06/16 08:01 09/06/16 08:01 Assessment and Plan (1) Diabetes mellitus, insulin dependent (IDDM), uncontrolled Assessment & Plan: Endocrine consult reason for consult: uncontrolled diabetes Ms. Isaac is 56 y/o admitted for sob / CHF consult request was found on consult request list yesterday , floor was contacted today , consult request was confirmed , pt seen today as per pt. has DM 1998 (-) neuropathy , (+) retinopathy , (-) nephropathy , with left leg blister outpatient diabetes management regimen : humalin 70/30 30 units bid inpatient diabetes management regimen : glipizide 10 mg po bid & humalin 70/30 10 units bid , humalin R low dose coverage blood glucose log : 200-300 NO hypoglycemia Allergy NKDA Past medical history : HTN , hyperlipidemia Past surgical history : CS x 3 Psychiatry history : denies Social history : denies smoking , ETOH use or illicit drug use Family history : mother with dm ROS: Constitutional: denies fever ,tiredness/weakness .HEENT: denies earache, change in voice .Respiratory: denies cough, (+) sob . CVS :no chest pain, no palpitations . Abdomen : no abdominal pain, no nausea /vomiting , no change bowel movement . 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 Extremities : (+) edema , no tremors .Skin: no itching, no rash Physical exam Well developed AAO x3 , ,NAD VSS HEENT: norm cephalic, atraumatic , no lid lag , no exophthalmos NECK: supple, no palpable lymphadenopathy THYROID: no palpable thyromegaly , not tender CHEST: fair air entry, bilateral, CVS: S1,S2 ABDOMEN: bowel sound present, benign, obese, no wide purple striae , no bruises EXTREMITIES: pitting edema, clubbing or cyanosis, no palpable hand tremors Skin : acanthosis nigricans lab: tsh 2.49 , a1c 11.9 , TG 147 , ldl 163 , NT-proNTP 1290 Assessment uncontrolled IDDM with retinopathy & leg blisters CHF morbid obesity plan continue Novoloin R low dose coverage, no 3 am coverage increase novoloin 70/30 15 bid with meals , if eat > 60% increase levemir 15 units @ 9pm daily starting tomorrow 09/07/2016 on Crestor nutrtional evaluation & diabetic education will monitor Status: Acute (2) New onset of congestive heart failure Status: Acute (3) Morbid obesity Status: Acute
--- NOTE | 2016-09-09 07:00 | PN ---
DATE: 09/08/2016 The patient is a 56-year-old female with a new onset congestive heart failure, swelling of the leg, s welling over the right upper extremity due to IV line problem. No nausea, vomiting, or diarrhea. No hematuria or hematochezia. No swelling of the upper extremity. PHYSICAL EXAMINATION: VITAL SIGNS: Temperature 98.2, pulse 105, respiratory rate 18, blood pressure 141/82, pulse oximetry 97. HEENT: Head normocephalic, atraumatic. Eyes: PERRLA. Extraocular muscles intact. Conjunctivae pi nk. Eyelids unremarkable. Nose patent. Mucous membranes moist. NECK: Supple. No carotid bruit, JVD or thyromegaly. CHEST: Bilaterally symmetrical. HEART: S1, S2 positive. LUNGS: Clear to auscultation. ABDOMEN: Soft. Bowel sounds present. No organomegaly. EXTREMITIES: Trace edema. NEUROLOGIC: The patient is awake, alert, moving all 4 extremities. No focal deficit MEDICATIONS: Tylenol, Ventolin, aspirin, Lovenox, Pepcid, Lasix, Levemir, Cozaar, magnesium oxide. LABORATORY DATA: We do not have recent labs today, but I reviewed old labs. ASSESSMENT AND PLAN: The patient is a 56-year-old female seen by the yarn rewinder, Dr. Chavez, new on set congestive heart failure, improving; then had noncardiac pain issues resolved. We will consider further cardiac workup. Chest pain got better. Reviewed Dr. Chavez's notes. Advised her to undergo cardiac workup. The patient does not have cardiac pain, seen by straddle carrier operator, Yao Higginbotham. Obesit y. Water pill, started spironolactone, bacitracin cream, ceftriaxone, Cozaar, Crestor, Lasix, Loveno x, magnesium, acetaminophen, tramadol, albuterol. The patient is a 56-year-old lady with multiple me dical problems, getting treatment for congestive heart failure, seen by Dr. Yao Higginbotham for diabetes m sergio. Repeat labs. We will follow up. Carie Acosta MD cc: [id number] TT: 09/09/2016 07:00:35 Confirmation # [id number] Dictation # [id number]
[2016-09-09] MEDS: (Novolin 70/30) NPH/Regular 70/30 Units/ml 10 ml vial SC SCH ×2 (08:06→18:16)
[2016-09-09] MEDS: (Novolin R) Insulin Human Regular 100 units/ml vial SC SCH ×4 (08:06→21:32)
[2016-09-09 08:34] LABS: CHLORIDE 98 mmol/L (98-107)
[2016-09-09 08:35] LABS: POTASSIUM 4.3 mmol/L (3.6-5.2); SODIUM 140 mmol/L (132-148)
[2016-09-09 08:37] LABS: CARBON DIOXIDE 34 mmol/L (22-30); GFR AFRICAN-AMERICAN > 60
[2016-09-09 08:38] LABS: BLOOD UREA NITROGEN 33 mg/dL (7-17); GLUCOSE,RANDOM 187 mg/dL (65-105); MAGNESIUM 2.4 mg/dL (1.6-2.3)
--- NOTE | 2016-09-09 09:24 | CP.PCM.PN ---
Subjective - Date & Time of Evaluation Date of Evaluation: 09/09/16 Time of Evaluation: 09:21 - Subjective Subjective: Feeling better but still have shoulder pain. Objective - Vital Signs/Intake and Output Vital Signs (last 24 hours): Temp Pulse Resp BP Pulse Ox 97.9 F 80 18 136/83 95 09/09/16 07:20 09/09/16 07:20 09/09/16 07:20 09/09/16 07:20 09/09/16 07:20 Intake and Output: 09/09/16 09/09/16 06:59 18:59 Intake Total 300 Balance 300 - Medications Medications: Current Medications Acetaminophen (Tylenol 325mg Tab) 650 mg PO Q8 PRN PRN Reason: Pain, moderate (4-7) Last Admin: 09/06/16 07:08 Dose: 650 mg Albuterol (Ventolin Hfa 90 Mcg/Actuation (8 G)) 2 puff IH Q6H PRN PRN Reason: Shortness of Breath Last Admin: 09/04/16 01:31 Dose: 2 puff Aspirin (Aspirin) 325 mg PO DAILY [facility] Last Admin: 09/08/16 09:38 Dose: 325 mg Bacitracin (Bacitracin) 0 gm TOP DAILY [facility] Last Admin: 09/08/16 09:33 Dose: 1 applic Enoxaparin Sodium (Lovenox) 40 mg SC DAILY [facility] Last Admin: 09/08/16 09:37 Dose: 40 mg Famotidine (Pepcid) 40 mg PO DAILY [facility] Last Admin: 09/08/16 09:38 Dose: 40 mg Furosemide (Lasix) 40 mg PO BID [facility] Last Admin: 09/08/16 17:43 Dose: 40 mg Insulin Detemir (Levemir) 15 unit SC HS [facility] Insulin Human Isoph/Insulin Regular (Novolin 70/30 (70/30 Units/Ml) 10 Ml) 15 units SC BIDPC [facility] Last Admin: 09/09/16 08:06 Dose: 15 units Insulin Human Regular (Novolin R) 0 unit SC ACHS [facility] PRN Reason: Protocol Last Admin: 09/09/16 08:06 Dose: 2 unit Losartan Potassium (Cozaar) 100 mg PO DAILY [facility] Last Admin: 09/08/16 09:37 Dose: 100 mg Magnesium Oxide (Mag-Ox) 400 mg PO DAILY [facility] Metoprolol Tartrate (Lopressor) 50 mg PO BID [facility] Last Admin: 09/08/16 17:44 Dose: 50 mg Rosuvastatin Calcium (Crestor) 20 mg PO HS [facility] Last Admin: 09/08/16 21:59 Dose: 20 mg Spironolactone (Aldactone) 25 mg PO BID [facility] Last Admin: 09/08/16 17:44 Dose: 25 mg Tramadol HCl (Ultram) 50 mg PO TID PRN PRN Reason: Pain, moderate (4-7) Last Admin: 09/07/16 12:25 Dose: 50 mg - Labs Labs: 09/06/16 08:01 09/09/16 07:54 - Neck Exam Neck Exam: Normal Inspection - Respiratory Exam Respiratory Exam: NORMAL BREATHING PATTERN - Cardiovascular Exam Cardiovascular Exam: REGULAR RHYTHM - Neurological Exam Neurological Exam: Oriented x3 Assessment and Plan (1) New onset of congestive heart failure Assessment & Plan: Improved, adjusted diuretics and labs are within normal limits. Continue adjusted regimen. Status: Acute (2) Chest pain Assessment & Plan: Resolved but still have shoulder pain. Will consider further cardiac work-up when other issues are resolved. Status: Acute
--- NOTE | 2016-09-09 10:18 | VASCLAB ---
PROCEDURE: Right Upper Extremity Venous Duplex Exam HISTORY: rt arm pain PRIORS: None. TECHNIQUE: Right upper extremity, internal jugular, subclavian, axillary, brachial, ulnar, radial, basilic and upper cephalic veins were evaluated. Flow was assessed with color Doppler, compressibility, assessment of phasic flow and augmentation response. Report prepared by JORGE Donohue, RVT FINDINGS: RIGHT: 1. Internal Jugular: 1.1. Compressibility - Fully compressible: Thrombus - None : Flow - Phasic: Augmentation -Normal: Reflux - None. 2. Subclavian: 2.1. Compressibility - Fully compressible: Thrombus - None : Flow - Phasic: Augmentation -Normal: Reflux - None. 3. Axillary: 3.1. Compressibility - Fully compressible: Thrombus - None : Flow - Phasic: Augmentation -Normal: Reflux - None. 4. Brachial: 4.1. Compressibility - Fully compressible: Thrombus - None: Flow - Phasic: Augmentation -Normal: Reflux - None. 5. Ulnar: 5.1. Compressibility - Fully compressible: Thrombus - None: Flow - Phasic: Augmentation -Normal: Reflux - None. 6. Radial: 6.1. Compressibility - Fully compressible: Thrombus - None: Flow - Phasic: Augmentation - Normal: Reflux - None. 7. Cephalic: 7.1. Compressibility - Fully compressible: Thrombus - None: Flow - Phasic: Augmentation -Normal: Reflux - None. 8. Basilic: 8.1. Compressibility - Fully compressible: Thrombus - None: Flow - Phasic: Augmentation -Normal: Reflux - None. OTHER FINDINGS: Right: None. IMPRESSION: Right: No evidence of vein thrombosis of the right upper extremity with excellent venous flow. Normal valve function noted of the right side. Normal venous flow noted in the left internal jugular and left subclavian veins.
[2016-09-09] MEDS: Enoxaparin 40 mg Syringe SC SCH (10:28)
[2016-09-09] MEDS: Bacitracin Ointment 30 GM TUBE TOP SCH (10:29)
--- NOTE | 2016-09-09 10:29 | CP.PCM.PN ---
Subjective - Date & Time of Evaluation Date of Evaluation: 09/09/16 Time of Evaluation: 10:26 - Subjective Subjective: Patient seen and evaluated at bedside, NAD. Patient has bandage clean dry and intact to the left lower extremity. Patient states that she sees outside mink slicer and will continue to follow up with him after she is discharged. She denies any pain to her left heel at this time, denies any left lower extremity pain. Patient would not like x-rays taken of her foot at this time. Objective - Vital Signs/Intake and Output Vital Signs (last 24 hours): Temp Pulse Resp BP Pulse Ox 97.9 F 80 18 136/83 95 09/09/16 07:20 09/09/16 07:20 09/09/16 07:20 09/09/16 07:20 09/09/16 07:20 Intake and Output: 09/09/16 09/09/16 06:59 18:59 Intake Total 300 Balance 300 - Medications Medications: Current Medications Acetaminophen (Tylenol 325mg Tab) 650 mg PO Q8 PRN PRN Reason: Pain, moderate (4-7) Last Admin: 09/06/16 07:08 Dose: 650 mg Albuterol (Ventolin Hfa 90 Mcg/Actuation (8 G)) 2 puff IH Q6H PRN PRN Reason: Shortness of Breath Last Admin: 09/04/16 01:31 Dose: 2 puff Aspirin (Aspirin) 325 mg PO DAILY [facility] Last Admin: 09/08/16 09:38 Dose: 325 mg Bacitracin (Bacitracin) 0 gm TOP DAILY [facility] Last Admin: 09/08/16 09:33 Dose: 1 applic Enoxaparin Sodium (Lovenox) 40 mg SC DAILY [facility] Last Admin: 09/08/16 09:37 Dose: 40 mg Famotidine (Pepcid) 40 mg PO DAILY [facility] Last Admin: 09/08/16 09:38 Dose: 40 mg Furosemide (Lasix) 40 mg PO BID [facility] Last Admin: 09/08/16 17:43 Dose: 40 mg Insulin Detemir (Levemir) 15 unit SC HS [facility] Insulin Human Isoph/Insulin Regular (Novolin 70/30 (70/30 Units/Ml) 10 Ml) [facility] Last Admin: 09/09/16 08:06 Dose: 15 units Insulin Human Regular (Novolin R) 0 unit SC ACHS [facility] PRN Reason: Protocol Last Admin: 09/09/16 08:06 Dose: 2 unit Losartan Potassium (Cozaar) 100 mg PO DAILY [facility] Last Admin: 09/08/16 09:37 Dose: 100 mg Magnesium Oxide (Mag-Ox) 400 mg PO DAILY [facility] Metoprolol Tartrate (Lopressor) 50 mg PO BID [facility] Last Admin: 09/08/16 17:44 Dose: 50 mg Rosuvastatin Calcium (Crestor) 20 mg PO HS [facility] Last Admin: 09/08/16 21:59 Dose: 20 mg Spironolactone (Aldactone) 25 mg PO BID [facility] Last Admin: 09/08/16 17:44 Dose: 25 mg Tramadol HCl (Ultram) 50 mg PO TID PRN PRN Reason: Pain, moderate (4-7) Last Admin: 09/07/16 12:25 Dose: 50 mg - Labs Labs: 09/06/16 08:01 09/09/16 07:54 - Constitutional Appears: Well, Non-toxic, No Acute Distress - Neurological Exam Neurological Exam: Oriented x3 - Psychiatric Exam Psychiatric exam: Normal Affect, Normal Mood - Additional Findings Additional findings: DERMATOLOGIC: Left heel with mild hyperpigmentation, mildly peeling and xerotic skin due to healed lesion. No open lesion, no blistering, no drainage, no erythema present. Surrounding skin is intact, normal skin color. VASCULAR: DP/PT pulses 2/4, CUSTOMER CARE TEAM COACH<3 seconds, skin temperature normal. There is mild diffuse edema of the lower extremities. NEUROLOGIC: Gross sensation intact, motor function intact ORTHOPEDIC: Negative pain on palpation to the left heel Assessment and Plan - Assessment and Plan (Free Text) Assessment: 56 year old female with healed left posterior heel blister Plan: Patient seen and evaluated, d/w attending Dr. Rodriguez Patient stable per podiatry, all blistering healed at this time Patient refuses x-rays at this time Left heel dressed with xeroform, DSD for protection Patient will f/u with her outside mink slicer following discharge
[2016-09-09] MEDS: Magnesium Oxide 400 mg Tab UD PO SCH (11:09)
[2016-09-09 15:03] LABS: URIC ACID 10.1 mg/dL (2.2-7.5)
--- NOTE | 2016-09-09 21:23 | CP.PCM.PN ---
Subjective - Date & Time of Evaluation Date of Evaluation: 09/09/16 Time of Evaluation: 21:20 - Subjective Subjective: uncontrolled IDDM Objective - Vital Signs/Intake and Output Vital Signs (last 24 hours): Temp Pulse Resp BP Pulse Ox 98.2 F 82 18 145/85 97 09/09/16 15:35 09/09/16 15:35 09/09/16 15:35 09/09/16 18:19 09/09/16 15:35 Intake and Output: 09/09/16 09/10/16 18:59 06:59 Intake Total 700 Balance 700 - Medications Medications: Current Medications Acetaminophen (Tylenol 325mg Tab) 650 mg PO Q8 PRN PRN Reason: Pain, Mild (1-3) Albuterol (Ventolin Hfa 90 Mcg/Actuation (8 G)) 2 puff IH Q6H PRN PRN Reason: Shortness of Breath Last Admin: 09/04/16 01:31 Dose: 2 puff Allopurinol (Zyloprim) 100 mg PO DAILY [facility] Last Admin: 09/09/16 18:00 Dose: 100 mg Aspirin (Aspirin) 325 mg PO DAILY [facility] Last Admin: 09/09/16 10:25 Dose: 325 mg Bacitracin (Bacitracin) 0 gm TOP DAILY [facility] Last Admin: 09/09/16 10:29 Dose: 1 applic Colchicine (Colocrys) 0.6 mg PO DAILY [facility] Stop: 09/11/16 17:01 Last Admin: 09/09/16 18:00 Dose: 0.6 mg Enoxaparin Sodium (Lovenox) 40 mg SC DAILY [facility] Last Admin: 09/09/16 10:28 Dose: 40 mg Famotidine (Pepcid) 40 mg PO DAILY [facility] Last Admin: 09/09/16 10:28 Dose: 40 mg Furosemide (Lasix) 40 mg PO BID [facility] Last Admin: 09/09/16 18:19 Dose: 40 mg Ibuprofen (Motrin Tab) 400 mg PO Q6 PRN PRN Reason: Pain, moderate (4-7) Stop: 09/11/16 14:50 Last Admin: 09/09/16 15:49 Dose: 400 mg Insulin Detemir (Levemir) 15 unit SC HS [facility] Insulin Human Isoph/Insulin Regular (Novolin 70/30 (70/30 Units/Ml) 10 Ml) [facility] Last Admin: 09/09/16 18:16 Dose: 15 units Insulin Human Regular (Novolin R) 0 unit SC ACHS [facility] PRN Reason: Protocol Last Admin: 09/09/16 18:16 Dose: 4 unit Losartan Potassium (Cozaar) 100 mg PO DAILY [facility] Last Admin: 09/09/16 10:28 Dose: 100 mg Magnesium Oxide (Mag-Ox) 400 mg PO DAILY [facility] Last Admin: 09/09/16 11:09 Dose: Not Given Metoprolol Tartrate (Lopressor) 50 mg PO BID [facility] Last Admin: 09/09/16 18:19 Dose: 50 mg Rosuvastatin Calcium (Crestor) 20 mg PO HS [facility] Last Admin: 09/08/16 21:59 Dose: 20 mg Spironolactone (Aldactone) 25 mg PO BID [facility] Last Admin: 09/09/16 18:30 Dose: 25 mg Tramadol HCl (Ultram) 50 mg PO TID PRN PRN Reason: Pain, severe (8-10) - Labs Labs: 09/06/16 08:01 09/09/16 07:54 Assessment and Plan (1) Diabetes mellitus, insulin dependent (IDDM), uncontrolled Assessment & Plan: Endocrine consult reason for consult: uncontrolled diabetes Ms. Isaac is 56 y/o admitted for sob / CHF consult request was found on consult request list yesterday , floor was contacted today , consult request was confirmed , pt seen today as per pt. has DM 1998 (-) neuropathy , (+) retinopathy , (-) nephropathy , with left leg blister blood glucose log : 200-300 NO hypoglycemia Allergy NKDA Past medical history : HTN , hyperlipidemia Past surgical history : CS x 3 Psychiatry history : denies Social history : denies smoking , ETOH use or illicit drug use Family history : mother with dm ROS: Constitutional: denies fever ,tiredness/weakness .HEENT: denies earache, change in voice .Respiratory: denies cough, (+) sob . CVS :no chest pain, no palpitations . Abdomen : no abdominal pain, no nausea /vomiting , no change bowel movement . STORY TELLER : denies light-headedness, dizziness. Extremities : (+) edema , no tremors .Skin: no itching, no rash Physical exam Well developed AAO x3 , ,NAD VSS HEENT: norm cephalic, atraumatic , no lid lag , no exophthalmos NECK: supple, no palpable lymphadenopathy THYROID: no palpable thyromegaly , not tender CHEST: fair air entry, bilateral, CVS: S1,S2 ABDOMEN: bowel sound present, benign, obese, no wide purple striae , no bruises EXTREMITIES: pitting edema, clubbing or cyanosis, no palpable hand tremors Skin : acanthosis nigricans lab: tsh 2.49 , a1c 11.9 , TG 147 , ldl 163 , NT-proNTP 1290 Assessment uncontrolled IDDM with retinopathy & leg blisters CHF morbid obesity plan continue Novoloin R low dose coverage, no 3 am coverage continue novoloin 70/30 15 bid with meals , if eat > 60% will start levemir 15 units @ 9pm daily today on Crestor nutrtional evaluation & diabetic education will monitor Status: Acute (2) New onset of congestive heart failure Status: Acute (3) Morbid obesity Status: Acute
[2016-09-09] MEDS ORDERED: Insulin Detemir 100 units/ml Vial (Levemir) SC SCH (22:00)
[2016-09-10] MEDS: (Novolin 70/30) NPH/Regular 70/30 Units/ml 10 ml vial SC SCH (08:35)
[2016-09-10] MEDS: (Novolin R) Insulin Human Regular 100 units/ml vial SC SCH ×2 (08:35→12:36)
[2016-09-10] MEDS: Enoxaparin 40 mg Syringe SC SCH ×2 (09:48→10:02)
[2016-09-10] MEDS: Magnesium Oxide 400 mg Tab UD PO SCH (09:56)
[2016-09-10] MEDS ORDERED: Lidocaine 5% Patch TD SCH (10:00)
--- NOTE | 2016-09-10 10:22 | PN ---
DATE: 09/09/2016 SUBJECTIVE: The patient was seen and examined on the bedside, looks comfortable , complaining of shoulder pain. No nausea, vomiting, or diarrhea. No hematuria or hematochezia. Swelling of the leg is getting better. Left heel has a dressing, but denies any pain. No pain in the lower extremity. No fever , no chills. No nausea, vomiting, or diarrhea. No hematuria or hematochezia. PHYSICAL EXAMINATION: VITAL SIGNS: Temperature is 97.9, pulse 80, respiratory rate 18, blood pressure 136/80. HEENT: Head normocephalic, atraumatic. Eyes: PERRLA. Extraocular muscles intact. Conjunctivae pink. Eyelids unremarkable. Nose patent. Mucous membranes moist. NECK: Supple. No carotid bruit, JVD or thyromegaly. CHEST: Bilaterally symmetrical. HEART: S1, S2 positive. LUNGS: Clear to auscultation. ABDOMEN: Soft. Bowel sounds present. No organomegaly. EXTREMITIES: No edema, no cyanosis. NEUROLOGIC: The patient is awake, alert, moving all 4 extremities. No focal deficit. MEDICATIONS: Tylenol, Ventolin, aspirin, bacitracin, Lovenox, Pepcid, Lasix, Levemir, Cozaar, Crestor, Aldactone. LABORATORY DATA: We do not have recent labs today, but I reviewed old labs. ASSESSMENT AND PLAN: The patient is a 56-year-old lady with diabetes mellitus with left heel blister. The patient is stable as per podiatry. All blistering healed at this time. The patient refuses x-ray at this time. Left heel dressed with Xeroform and the patient wanted to follow up with her fulfillment associate as outpatient. Seen by Yao Higginbotham, map compiler, Dr. Chavez, finish molder. New onset congestive heart failure, improved. Adjusted diuretics and labs are within normal limits. Continue present treatment. Chest pain is resolved, but still has shoulder pain. Dr. Chavez wants to do cardiac workup as outpatient, sent for MRI of the shoulder. Obesity. Swelling of the leg is getting better. Uncontrolled insulin-dependent diabetes mellitus with retinopathy and leg blistering. Continue Novolin, Levemir and Crestor. Nutritional evaluation and diabetic education, discussion with the patient. Gastrointestinal and deep vein thrombosis prophylaxis. Continue spironolactone and Lasix, aspirin, bacitracin. The patient's uric acid level is high, started on some colchicine and Uric acid . Famotidine for gastrointestinal prophylaxis, tramadol for the pain, getting sliding scale, physical therapy. We will follow up. Carie Acosta MD cc: [id number] TT: 09/10/2016 07:10:41 Confirmation # [id number] Dictation # [id number] MTDD
--- NOTE | 2016-09-10 10:34 | CON ---
DATE: 09/10/2016 REASON FOR CONSULTATION: Right shoulder pain. HISTORY OF PRESENT ILLNESS: This is a 56-year-old female who was admitted for CHF exacerbation who d eveloped right shoulder pain. She denies any history of trauma. She denies any numbness or tingling going down the arm. She says that, while she was hospitalized, she developed pain in the right shou lder for approximately 3 days. She says today the pain has resolved significantly and she is now abl e to move her arm better. She still has some residual pain. PHYSICAL EXAMINATION: GENERAL: She is awake, alert and oriented x 3. EXTREMITIES: Evaluation of right shoulder shows no obvious swelling or deformity. Her skin is intac t. She has no specific areas of point tenderness to palpation. She does have active forward flexion to about 160 degrees with some pain through the impingement arc. She has abduction to 90 degrees wi thout significant pain. She has some mild to moderate loss of internal rotation. Negative apprehens ion relocation test. No significant pain with cross chest adduction. She has a negative sulcus sign . She has good strength resisted abduction and forward flexion with some mild pain. Neurovascularly , she is intact distally. There are no recent imaging studies available for my review. IMPRESSION: Right shoulder pain. PLAN: According to the patient, they did attempt to do an MRI yesterday, but it was unable to be per formed. For now, I am going to order x-rays of the right shoulder. We are going to let her do her a ctivities as tolerated. I will follow up once the x-rays are complete. Luis M Fulton MD cc: [id number] TT: 09/10/2016 10:33:21 Confirmation # [id number] Dictation # [id number] tn
[2016-09-10] MEDS: Bacitracin Ointment 30 GM TUBE TOP SCH (12:36)
--- NOTE | 2016-09-10 14:46 | CP.PCM.PN ---
Subjective - Date & Time of Evaluation Date of Evaluation: 09/10/16 Time of Evaluation: 11:00 - Subjective Subjective: BOOKKEEPING SERVICE SALES AGENT NOTES 56 YR OLD FEMALE ADMITTED FOR NEW CHF and CHEST PAIN SEEN BY DR. POWER FOR R SHOULDER PAIN AN DX- RAY ORDERED , PENDING RESULT SEEN TODAY WITH DR. METCALF , CLEARED FOR DISCHARGE TODAY AFTER X-RAY OF SHOULDER AND F/U WITH OUT PATIENT WITH DR. ARTIS, DR. POWER AND HER PMD DISCHARGE PLAN DISCUSSED WITH PATIENT , WHO UNDERSTANDS AND AGREES WITH PLAN RX SENT TO PHARMACY VIA E PRESCRIPTION Objective - Vital Signs/Intake and Output Vital Signs (last 24 hours): Temp Pulse Resp BP Pulse Ox 98.5 F 99 H 18 126/80 95 09/10/16 08:36 09/10/16 10:00 09/10/16 08:36 09/10/16 09:55 09/10/16 08:36 Intake and Output: 09/10/16 09/10/16 06:59 18:59 Intake Total 120 Balance 120 - Medications Medications: Current Medications Acetaminophen (Tylenol 325mg Tab) 650 mg PO Q8 PRN PRN Reason: Pain, Mild (1-3) Albuterol (Ventolin Hfa 90 Mcg/Actuation (8 G)) 2 puff IH Q6H PRN PRN Reason: Shortness of Breath Last Admin: 09/04/16 01:31 Dose: 2 puff Allopurinol (Zyloprim) 100 mg PO DAILY [facility] Last Admin: 09/10/16 09:48 Dose: 100 mg Aspirin (Aspirin) 325 mg PO DAILY [facility] Last Admin: 09/10/16 09:49 Dose: 325 mg Bacitracin (Bacitracin) 0 gm TOP DAILY [facility] Last Admin: 09/10/16 12:36 Dose: 1 applic Colchicine (Colocrys) 0.6 mg PO DAILY [facility] Stop: 09/11/16 17:01 Last Admin: 09/10/16 09:49 Dose: 0.6 mg Enoxaparin Sodium (Lovenox) 40 mg SC DAILY [facility] Last Admin: 09/10/16 10:02 Dose: Not Given Famotidine (Pepcid) 40 mg PO DAILY [facility] Last Admin: 09/10/16 09:49 Dose: 40 mg Furosemide (Lasix) 40 mg PO BID [facility] Last Admin: 09/10/16 09:55 Dose: 40 mg Ibuprofen (Motrin Tab) 400 mg PO Q6 PRN PRN Reason: Pain, moderate (4-7) Stop: 09/11/16 14:50 Last Admin: 09/09/16 15:49 Dose: 400 mg Insulin Detemir (Levemir) 15 unit SC HS [facility] Last Admin: 09/09/16 21:33 Dose: 15 unit Insulin Human Isoph/Insulin Regular (Novolin 70/30 (70/30 Units/Ml) 10 Ml) [facility] Last Admin: 09/10/16 08:35 Dose: 15 units Insulin Human Regular (Novolin R) 0 unit SC ACHS [facility] PRN Reason: Protocol Last Admin: 09/10/16 12:36 Dose: 4 unit Lidocaine (Lidoderm) 1 ea TD DAILY [facility] Last Admin: 09/10/16 09:56 Dose: 1 ea Losartan Potassium (Cozaar) 100 mg PO DAILY [facility] Last Admin: 09/10/16 09:48 Dose: 100 mg Magnesium Oxide (Mag-Ox) 400 mg PO DAILY [facility] Last Admin: 09/10/16 09:56 Dose: Not Given Metoprolol Tartrate (Lopressor) 50 mg PO BID [facility] Last Admin: 09/10/16 09:49 Dose: 50 mg Rosuvastatin Calcium (Crestor) 20 mg PO [facility] Last Admin: 09/09/16 21:33 Dose: 20 mg Spironolactone (Aldactone) 25 mg PO BID [facility] Last Admin: 09/10/16 09:48 Dose: 25 mg Tramadol HCl (Ultram) 50 mg PO TID PRN PRN Reason: Pain, severe (8-10) - Labs Labs: 09/06/16 08:01 09/09/16 07:54
--- NOTE | 2016-09-10 15:09 | PCM.HF ---
Heart Failure Core Measure - Heart Failure Ejection Fraction: 40 % or Greater LULU Inhibitor Prescribed: Yes Beta-Horace Prescribed: Metoprolol Succinate Angiotensin II Receptor Horace Prescribed: No Contraindication/Reason for not providing: ON arb AnticoagulationTherapy for Atrial Fibrillation/Atrialflutter: No Contraindication/Reason for not providing: NO HX OF AFIB Aldosterone Antagonist Prescribed: Yes Hydralazine Nitrate Prescribed: No Contraindication/Reason for not providing: EF>45 Implantable Cardioverter Defibrillator Therapy: No Contraindication/Reason for not providing: EF>45 Cardiac Resynchronization Therapy Prescribed: No Contraindication/Reason for not providing: EF>45 - Follow up Will be discharged to: Home Follow Up Date (must be within 7 days from discharge): 09/15/16 Follow Up Time: 09:00
[2016-09-10 16:08] VITALS: BP 142/83; PULSE 82; RESP 20; TEMP 97.7; O2SAT 97
--- NOTE | 2016-09-10 16:58 | RAD ---
PROCEDURE: Radiographs of the Right Shoulder HISTORY: right shoulder pain COMPARISON: CT of the chest performed 09/28/15 FINDINGS: BONES: No acute displaced fracture. The distal clavicle and underlying ribs appear intact. JOINTS: No acute dislocation. Extensive calcifications adjacent to the humeral head compatible with calcific tendinitis. SOFT TISSUES: Soft tissues appear unremarkable. No evidence of radiopaque foreign body. IMPRESSION: Extent calcifications adjacent to the humeral head compatible with calcific tendinitis. No acute displaced fracture or dislocation evident. If symptoms persist or if there is continued clinical concern, x-ray follow-up in 7-10 days should be considered.
--- NOTE | 2016-09-13 17:48 | DS ---
CHIEF COMPLAINT: Shortness of breath. HISTORY OF PRESENT ILLNESS: The patient's chest is a 56-year-old female with past medical history of arthritis, asthma, diabetes mellitus, hypertension, hypercholesterolemia, came with new onset congestive heart failure. The shortness of breath, chest pain and legs swelling. Seen in the Emergency Room, got admitted. Cardiology consult with Dr. Chavez and endocrine consult with Dr. Yao Higginbotham, orthopedic consult with Dr. Fulton. [place] better. congestive heart failure is gone. But still the patient needs cardiac workup, as per Dr. Chavez that cardiac workup can be done as outpatient. The patient is can go home. For her right shoulder, we tried to do an MRI, but could not. Then, Dr. Fulton consult called and he ordered x-rays. According to patient, she does not want to stay for that. She can do follow up as outpatient with Dr. Fulton. The patient was discharged. Prescription of medications given. Follow up with business director, doll wig maker, orthopedic and primary care physician. PAST MEDICAL HISTORY: Arthritis, asthma, diabetes mellitus, hypertension, hypercholesterolemia, obesity. ALLERGIES: The patient is not allergic to any medication. FAMILY HISTORY: Father and mother noncontributory. HABITS: Never smoked, no drugs, no ethanol. HOME MEDICATIONS: Insulin , albuterol. REVIEW OF SYSTEMS: The patient was seen and examined on the bedside. Looks comfortable. No nausea, vomiting, or diarrhea. No hematuria or hematochezia. No swelling of the legs. Shortness of breath is better. Swelling of the leg is better. Right shoulder pain is a little bit better, but still was having arthritic pain. PHYSICAL EXAMINATION: VITAL SIGNS: Temperature 98, pulse 99, respiratory rate 18, blood pressure 122/ 80, pulse oximetry 95. HEENT: Head normocephalic, atraumatic. Eyes: PERRLA. Extraocular movements intact. Conjunctivae pink. Eyelids unremarkable. Nose patent. Mucous membranes moist. NECK: Supple. No carotid bruit, JVD or thyromegaly. CHEST: Bilaterally symmetrical. HEART: S1, S2 positive. LUNGS: Clear to auscultation. ABDOMEN: Soft. Bowel sounds positive. No organomegaly. EXTREMITIES: No edema, no cyanosis. NEUROLOGIC: The patient is awake, alert. Moving all 4 extremities. No focal deficits. MEDICATIONS: Tylenol, Ventolin, allopurinol, aspirin, bacitracin, colchicine, Lovenox, Lasix, Motrin, levemir. LABORATORY DATA: White blood cells 6.4, hemoglobin 13.1, hematocrit 41.2, platelets 226. Sodium 140, potassium 4.3, BUN 32, creatinine 1.1, glucose 187. ASSESSMENT AND PLAN: The patient is a 56-year-old lady with uncontrolled insulin-dependent diabetes mellitus, seen by Dr. Yao Higginbotham added yesterday insulin. Increased BUN. Right shoulder pain, seen by Dr. Fulton for right shoulder pain and x-ray ordered, pending results. Plan was after x-ray the patient can go home and follow up with Dr. Fulton. New onset of congestive heart failure, IV Lasix given with Aldactone and improved. According to Dr. Chavez cardiac workup can be done as outpatient. Uncontrolled diabetes mellitus. The patient will do follow up with Dr. Yao Higginbotham as outpatient. The patient understands and agrees with the plan and nurse practitioner gave prescription to pharmacy via ES[facility]. Appreciated Jenny CANO input. Rule out gouty arthritis, allopurinol and colchicine given for a couple of days , but she is to follow up with orthopedics and her shoulder pain resolved significantly. Now, she is able to move her arm better, but still a little pain and will be taken care of as outpatient. I reviewed the patient's right shoulder x-ray. No acute displaced fracture, no dislocation evident, if symptoms persist, or if there is continued medical concerns; x-ray followup in 7 -10 days should be considered as per Dr. Roxanne Chris and the patient was informed about that. Left heel ulcer. Seen by podiatry, dressing was applied and according to podiatry the patient will follow up with bread slicer machine as outpatient. She has her own bread slicer machine, wants to follow up with her own bread slicer machine. The patient was offered subacute rehab and she refused. She wanted to go home. She has family with her. Her daughters and grand kids, she said that she would be taken care of at home and then discharged. Carie Acosta MD cc: [id number] TT: 09/13/2016 17:47:24 jn TAMERA
== END 2016-09-10 17:33 | disposition home or self-care (01) | DRG 127 ==
LOC: C.ER 21:26 → C.9E 09-02 00:31 → C.9I 09-02 07:30 → C.6T 09-04 20:48
PROVIDERS: ADMIT Internal Medicine; ATTEND Internal Medicine
DX: I11.0 Hypertensive heart disease with heart failure (principal); E11.621 Type 2 diabetes mellitus with foot ulcer; E11.319 Type 2 diabetes mellitus with unspecified diabetic retinopathy without macular edema; L97.409 Non-pressure chronic ulcer of unspecified heel and midfoot with unspecified severity; L03.113 Cellulitis of right upper limb; E87.6 Hypokalemia; I50.31 Acute diastolic (congestive) heart failure; E11.65 Type 2 diabetes mellitus with hyperglycemia; E78.00 Pure hypercholesterolemia, unspecified; E66.01 Morbid (severe) obesity due to excess calories; E83.51 Hypocalcemia; M25.511 Pain in right shoulder; M10.9 Gout, unspecified; J45.909 Unspecified asthma, uncomplicated; E78.5 Hyperlipidemia, unspecified; Z79.4 Long term (current) use of insulin; Z83.3 Family history of diabetes mellitus; Z68.42 Body mass index [BMI] 45.0-49.9, adult